=== PATIENT | female | born 1950 | race Caucasian/White ===

== ENCOUNTER 2018-12-14 05:16 | Day surgery (SDC) | payer MEDICARE, SELFPAY ==
--- NOTE | 2018-11-16 04:35 | HP_ITS ---
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 Is patient in pain?: No Allergies bacitracin Adverse Reaction (Severe, Verified 11/16/18 15:31) Itching hydrogen peroxide Adverse Reaction (Severe, Verified 11/16/18 15:31) Itching oxycodone HCl [From Percocet] Adverse Reaction (Severe, Verified 11/16/18 15:31) Itching Medications Atorvastatin Calcium [Lipitor] 20 mg PO QHS 09/13/14 [History Confirmed 11/16/18] Benazepril HCl [Lotensin] 40 mg PO DAILY 09/13/14 [History Confirmed 11/16/18] Hydrochlorothiazide [Hctz] 25 mg PO DAILY 09/13/14 [History Confirmed 11/16/18] Albuterol IH (ProAir) [Proair Hfa (SP)Vent Pts] 2 puff INHALATION Q4H PRN PRN 09/27/14 [History Confirmed 11/16/18] Potassium Chloride [K-Tab ER] 20 meq PO BID 09/27/14 [History Confirmed 11/16/18] Loperamide [Imodium] 2 mg PO 4X/DAY PRN PRN 10/02/14 [History Confirmed 11/16/18] PFSH Medical History Black tarry stools (Acute) Hemorrhoids (Acute) Diarrhea (Acute) Abdominal pain (Acute) SOB (shortness of breath) (Acute) Fatigue (Acute) DVT (deep venous thrombosis) (Acute) Hypertension (Chronic) Hyperlipidemia (Acute) COPD (chronic obstructive pulmonary disease) (Acute) Surgical History BENIGN AXILLARY MASS REMOVAL, LEFT (Acute) RECTAL SURGERY WITH BOWEL OBSTRUCTION (Acute) ANKLE/HEEL SURGERY RIGHT (Acute) Family History Father Prostate cancer Diabetes Arthritis Heart disease Mother CVA (cerebral vascular accident) Hypertension Social History (Updated 11/16/18 @ 16:35 by Allan Woody MD) Smoking Status: Current every day smoker alcohol intake: current alcohol intake frequency: holidays/special occasions only substance use type: does not use caffeine: Yes what type of physical activity do you participate in: none frequency: does not exercise HPI HPI HPI: XIN JUAREZ, is a 68 F who presents to the office today for HPI HPI Surgical H&P: Yes HPI: XIN JUAREZ, is a 68 F who presents to the office today for surgical consultation regarding a slowly elevating CEA level. The patient is referred by Dr. Evan Kurtz and a written compromise surgical consult recommendations will be returned to him. The patient is Yazmin's sister. Her most recent oncology visit demonstrated CEA level to have increased to 8.6. She was diagnosed with rectal cancer April 14 and underwent a open low anterior resection May 12, 2014 for stage III disease. Tumor invaded through the muscularis propria 5 out of 13 lymph nodes were positive. She received adjuvant chemoradiation treatment. She states that she did lose weight during that time. But is slowly put a slight bit of weight back:. She notes uncontrollable stools but that has been a constant problem. Her operation was performed by Dr. Mccormack in [facility]. The patient states that within a month postoperatively she had to go back to open surgery for small bowel obstruction. She has been a long-term cigarette smoker [id number] history and she has significant COPD. She is being referred for consideration of colonoscopy. A source for the slowly rising CEA has not as yet been determined. She reminds me that I assisted her previously with placement of right internal jugular port. That has subsequently already been removed. Her previous colonoscopy April 14 demonstrated the rectal cancer as well as 2 additional tubular adenomas of the transverse colon based upon distance ROS General General: Yes fatigue; no weight change, appetite, colon cancer, breast cancer or weakness HEENT HEENT: No difficulty swallowing, eye injury, eye surgery, swollen glands or hoarseness Endo Endocrine: No thyroid disease, diabetes mellitus, thyroid cancer, Hair loss, heat intolerance or cold intolerance Skin Skin: No rash or changing moles Musc Musculoskeletal: Yes arthritis; no back problems, rheumatoid arthritis, gout or joint pain Cardio Cardiovascular: Yes high blood pressure; no murmur, pacemaker, heart disease, atrial fibrillation, heart attack, heart stent, palpitations, shortness of breat with exertion or chest pain Psych Psychiatric: No depression, anxiety or hearing voices Resp Respiratory: Yes shortness of breath, No sleep apnea, Yes cough, Yes COPD, No asthma, No emphysema, No wheezing Gastro Gastrointestinal: Yes abdominal pain, No nausea or vomiting, Yes diarrhea, No constipation, No blood in stool, No acid reflux, Yes hemorrhoids, No ulcers, No gallbladder problem, Yes black,tarry stools Yinka Hematologic: No blood thinners, No blood disorders, No bleeding, No anemia, No blood clots Neuro Neurologic: Yes numbness, Yes tingling, No weakness Exam Const General: cooperative, comfortable, no acute distress Nutritional Appearance: underweight Orientation: alert, awake Other: Patient appears older than stated age Chest Other: Increased anterior posterior diameter Resp Other: Scattered coarse breath sounds intermittent expiratory wheeze Cardio Rate: regular rate Rhythm: regular rhythm Heart Sounds: no murmurs GI Palpation: soft, no hepatosplenomegaly Other: Well-healed infraumbilical midline incision without fascial defect Neuro Cognition: normal cognition Extrem General: no calf tenderness bilaterally Psych Affect: normal affect Assessment & Plan Problems 1. Malignant neoplasm of rectum C20 Plan I have explained to the patient that with the low anterior resection that she had the vast majority of her rectum removed therefore does not have a storage organ and therefore has fecal urgency and intermittent diarrhea as a consequence. In addition she had chemoradiation. With a slowly elevating CEA level I do recommend pursuing a colonoscopy with possible biopsy or polypectomy as indicated. She is aware of the technique, benefit, risks, alternatives. She has had an opportunity to ask and have questions answered. We will proceed as noted. Very much appreciate the ongoing opportunity of assisting with her surgical care. CC: Dr. Evan Woody M.D., F.A.C.S. Coding Level of Care Code 62698 Diagnoses Malignant neoplasm of rectum C20 11/16/18 [id number] <Electronically signed by Allan wilcox MD> Date _ Allan Woody MD I have re-examined the patient. There are no clinical changes since date of exam.
[2018-11-16 15:30] VITALS: BMI 19.5
[2018-12-14] VITALS (8 sets, daily range): BP systolic 147–168; BP diastolic 67–89; PULSE 79–93; RESP 16–18; TEMP 36–36.7; O2SAT 93–100; BMI 19.3
[2018-12-14] MEDS: Lactated Ringers 1,000 ML 100 ML IV (06:25)
--- NOTE | 2018-12-14 06:30 | COLBX_PTH ---
PATIENT: XIN JUAREZ LOC: EN U#:[id number] AGE/SX: 68/F ROOM: RE12/14/[address]: Dr. Allan Woody MD : 1950 BED: DIS: 12/14/2018 SPEC #: [id number] RECD: 12/14/18 10:50 STATUS: TERESE ELISHA #: [id number] DONALD: 12/14/18 06:[address]: Allan Woody DEPT: SURGICAL PATHOLOGY RECD BY: Ravi Gibson ENTERED: 12/14/18 11:48 SP TYPE: COLON BX OTHR DR: Lauren Patterson, PYROGLAZER-C Tissues: Rectosigmoid junction Procedures: Surgery Specimen Level IV HEADER OPERATION: Colonoscopy (MAC) PRE-OP DIAGNOSIS: Elevating CEA level TISSUE SUBMITTED: Rectosigmoid biopsy MICROSCOPIC DIAGNOSIS Rectosigmoid colon, biopsy: Melanosis coli. AM:radha 12/15/18 MICROSCOPIC DESCRIPTION Slides are reviewed. GROSS DESCRIPTION Received in fixative is one container labeled with the patient's name and designated rectosigmoid biopsy. The specimen consists of one irregular fragment of light bolden soft tissue that measures 0.5 x 0.2 x 0.1 cm. The specimen is totally submitted in one cassette. / AM:radha 12/14/18 TC:5 CPT: 75839
--- NOTE | 2018-12-14 23:36 | OP.ENDO_ITS ---
12/14/2018 Claribel Herrera Re : Colonoscopy procedure for Stefania Casarez Dear Leonardo This procedure was performed on Friday, December 14, 2018. My impressions and recommendations are as follows: Impressions : - Rectal stricture found on digital rectal exam. Marked fixation, scarring, malformation, tortuosity, inflammatory change--had to use a combination of a gastroscope and pediatric colonoscope to negotiate past the deformity. Digital exam assisted with stricture dilatation and ability to detect true lumen. - Patent end-to-end low-anterior anastomosis, characterized by congestion, edema, erythema, friable mucosa, a hemorrhagic appearance and moderate stenosis. Biopsied. - Diverticulosis in the sigmoid colon. Recommendations : - Discharge patient to home. - Resume previous diet. - Continue present medications. - Repeat colonoscopy in 3 years for surveillance. - Telephone my office for pathology results in 1 week. My findings are described in the full procedure note, which is enclosed. If I can be of further assistance, please feel free to contact me at Doctor phone number(s): Work: . Sincerely, Allan Woody MD 12/14/2018 7:16:48 AM This report has been signed electronically.
== END 2018-12-14 08:11 | disposition home or self-care (01) ==
LOC: EN 05:16 → AC 05:17
PROVIDERS: Family Provider Nurse Practitioner Family; PCP Nurse Practitioner Family; Referring Provider Nurse Practitioner Family; Visit Provider Surgery
PROC: 0DJD8ZZ Inspection of Lower Intestinal Tract, Via Natural or Artificial Opening Endoscopic (ICD-10-PCS; CPT 45378; principal; 2018-12-14 06:25)
DX: K63.89 Other specified diseases of intestine (principal); K62.4 Stenosis of anus and rectum; K57.30 Diverticulosis of large intestine without perforation or abscess without bleeding; Z85.038 Personal history of other malignant neoplasm of large intestine; J44.9 Chronic obstructive pulmonary disease, unspecified; E78.5 Hyperlipidemia, unspecified; I10 Essential (primary) hypertension; F17.210 Nicotine dependence, cigarettes, uncomplicated; Z98.0 Intestinal bypass and anastomosis status; Z86.718 Personal history of other venous thrombosis and embolism
CPT/HCPCS: 45380; 88305; J7120

== ENCOUNTER → 2018-12-28 | Outpatient (CLI) | payer MEDICARE, SELFPAY ==
[2018-11-16 15:30] VITALS: BMI 19.5
[2018-12-14 05:43] VITALS: BMI 19.3
--- NOTE | 2018-12-28 12:52 | CT_ITS ---
STUDY: CT CHEST WITH CONTRAST REASON FOR EXAM: Female, 68 years old. Abnormal PET scan and history of colon cancer. RADIATION DOSAGE (If Supplied By Facility): CTDIvol = ( 7.45 ) mGy, DLP = ( 185.08 ) mGycm TECHNIQUE: Transaxial imaging was performed following intravenous administration of IV 100mL Isovue-300 100. Individualized dose optimization techniques were used for this CT. COMPARISON: PET CT scan October 11, 2018 FINDINGS: Lungs are hyperaerated. There is centrilobular and paraseptal emphysema. There is a spiculated 13 x 9 mm groundglass density in the right upper lung field posteriorly on image #25. More ill-defined groundglass opacities noted anteriorly in the same slice. Ill-defined groundglass spiculated density right lateral upper lobe on image 39 measuring 14 x 14 mm. There is no demonstrated pleural abnormality. Normal heart and pericardium. Calcific coronary artery disease. Normal mediastinum. Normal hilar regions. Normal enhanced pulmonary arteries. Normal aorta arch and descending thoracic aorta. Normal osseous structures. Lobulated hypodense hepatic mass right lobe measures 5.2 x 4.4 cm with coarse calcifications. 14 mm calcified mass left lobe. CT/Chest WITH Contrast IMPRESSION: Stable spiculated densities right lung. Recommend continued surveillance with PET/CT. Stable hepatic lesions as above. Recommend continued surveillance with PET/CT. COPD and coronary artery disease. No acute disease. Electronically Signed: Chris Gage MD at 17:50 EDT , Service support ,
[2018-12-28 13:06] LABS: CREATININE FINGERSTICK 0.8 mg/dL (0.55-1.02); EGFR FINGERSTICK > 60.0000 mL/min (>60)
[2018-12-29 12:53] LABS: Carcinoembryonic Antigen 6.8 ng/mL (0.0-4.7)
== END | disposition home or self-care (01) ==
LOC: CT 12:51
PROVIDERS: Family Provider Nurse Practitioner Family; PCP Nurse Practitioner Family; Referring Provider Internal Medicine Hematology & Oncology; Visit Provider Internal Medicine Hematology & Oncology
DX: C20 Malignant neoplasm of rectum (principal); R89.9 Unspecified abnormal finding in specimens from other organs, systems and tissues; R93.89 Abnormal findings on diagnostic imaging of other specified body structures
CPT/HCPCS: 36415; 71260; 82378; Q9967

== ENCOUNTER → 2019-04-15 12:28 | Outpatient (CLI) | payer MEDICARE, SELFPAY ==
[2019-01-04 13:45] VITALS: BMI 19.9
[2019-04-15 13:13] LABS: Absolute Lymphocyte Count 1.04 X10^3/uL (0.83-4.51); Absolute Neutrophil Count 5.7 X10^3/uL (2.0-7.7); Basophil# 0.05 X10^3/uL; Basophil% 0.7 % (0-1); Eosinophil# 0.11 X10^3/uL; Eosinophils% 1.5 % (0-5); Hematocrit 43.1 % (37-47); Hemoglobin 13.3 g/dL (12.0-15.0); Lymphocyte # 1.04 X10^3/ul (4.0); Mean Corp Hgb Conc 30.9 g/dL (32-36); Mean Corpuscular Hgb 27.5 pg (27.0-32.0); Monocyte# 0.54 X10^3/uL; Monocyte% 7.2 % (0-10); NRBC Flagged by Analyzer 0 % (0-5); Neutrophil # 5.68 X10^3/uL (2.7-7.7); Neutrophil % 76.2 % (47-70); Platelet Count 334 K/mm3 (150-450); RBC Distribution Width CV 13.7 % (11.6-14.6); Red Blood Count 4.84 M/mm3 (4.2-5.4); White Blood Count 7.5 K/mm3 (4.4-11.0)
[2019-04-15 14:07] LABS: ALB/GLOB Ratio 1.2 RATIO (0.9-2.4); AST(SGOT) 16 U/L (15-37); Alanine Aminotransfer ALT/SGPT 22 U/L (13-56); Albumin, Serum 4.3 g/dL (3.2-5.0); Alkaline Phosphatase 118 U/L (45-117); Anion Gap 6 (5-15); BUN 11 mg/dL (7-18); BUN/Creat Ratio 15.1 RATIO (10-20); Calcium,Total 9.2 mg/dL (8.5-10.1); Chloride 105 mmol/L (98-107); Creatinine, Serum 0.73 mg/dL (0.55-1.02); EST Glomerular Filtration Rate 84 mL/min (>60); Est Glom Filt Rate - Afr Amer 102 mL/min (>60); Globulin 3.6 g/dL (2.2-4.2); Glucose 101 mg/dL (74-106); Protein, Total 7.9 g/dL (6.4-8.2); Sodium Level 139 mmol/L (136-145)
[2019-04-15 20:33] LABS: Xtra Tube EP Lab EXTRA TUBE
[2019-04-16 15:25] LABS: Carcinoembryonic Antigen 8.1 ng/mL (0.0-4.7)
== END ==
PROVIDERS: PCP Nurse Practitioner Family; Referring Provider Internal Medicine Hematology & Oncology; Visit Provider Internal Medicine Hematology & Oncology
DX: C20 Malignant neoplasm of rectum (principal)
CPT/HCPCS: 80053; 82378; 85025

== ENCOUNTER 2022-01-09 18:42 | Inpatient (IN) | payer MEDICARE, SELFPAY ==
[2022-01-09] VITALS (10 sets, daily range): BP systolic 158–203; BP diastolic 72–95; PULSE 107–118; RESP 18–26; TEMP 36.4–36.8; O2SAT 88–97; BMI 16.2; BMI 17.2
--- NOTE | 2022-01-09 19:45 | EKG12_ITS ---
Test Reason : SOB Blood Pressure : / mmHG Vent. Rate : 127 BPM Atrial Rate : 127 BPM P-R Int : 100 ms QRS Dur : 104 ms QT Int : 338 ms P-R-T Axes : 037 198 086 degrees QTc Int : 491 ms Sinus tachycardia with short [place] with frequent and consecutive Premature ventricular complexes and Fus ion complexes Right superior axis deviation Incomplete right bundle branch block Possible Right ventricular hypertrophy Nonspecific ST and T wave abnormality Abnormal ECG Confirmed by DEJAN KIMBLE, RENE ([id number]), associate editor CONSTANCE SHAHID ([id number]) on 01/13/2022 10:07:45 AM Referred By: Confirmed By:LUIS ANTONIO WYLIE MD
--- NOTE | 2022-01-09 19:46 | EDS_ITS ---
HPI History of Present Illness Chief Complaint: Shortness of Breath Narrative Narrative: 71-year-old female presenting with confusion and agitation. Apparently she was hospitalized at [facility] over the course of the last week. Initially she went to [facility] and was diagnosed with COVID and had a CTA of the chest which showed long masses. She spent time at [facility]. Her states that he was called to pick her up yesterday. He states he was not handed any paperwork. He states nobody told him anything about anything. He states he was discharged home on oxygen 4 L nasal cannula. Over the course the last 24 hours she has been agitated and confused. She is not had any fever. She not coughing. states he knows she has hypertension and COPD but does not know much history. He does not know if she started any new medications that would be causing agitation. He does state that he recalls that they were not able to do long biopsies for her lung cancer because she has COVID. states that she has been on the 4 L nasal cannula but is agitated and pulling it off and is having trouble keeping it on her. He states he does not have a pulse oximeter and has not been told to check his 's pulse ox. [facility] Medical History (Updated 01/09/22 @ 22:[address] Griselda Youssef MD) Abdominal pain Black tarry stools COPD (chronic obstructive pulmonary disease) Diarrhea DVT (deep venous thrombosis) Fatigue Hemorrhoids Hyperlipidemia Hypertension SOB (shortness of breath) Home Medications atorvastatin 20 mg tablet 20 mg PO QHS 09/13/14 [History Last Taken Unknown] benazepril 40 mg tablet 40 mg PO DAILY 09/13/14 [History Last Taken 09/14/14 08:00] hydrochlorothiazide 25 mg tablet 25 mg PO DAILY 09/13/14 [History Last Taken Unknown] albuterol sulfate 90 mcg/actuation aerosol inhaler 2 puff inhalation Q4H PRN PRN Shortness Of Breath 09/27/14 [History Last Taken Unknown] potassium chloride 20 mEq tablet,extended release 20 meq PO BID 09/27/14 [History Last Taken Unknown] loperamide 2 mg capsule 2 mg PO 4X/DAY PRN PRN Diarrhea 10/02/14 [History Last Taken Unknown] Allergy/AdvReac Type Severity Reaction Status Date / Time bacitracin AdvReac Severe Itching Verified 10/13/22 18:44 hydrogen peroxide AdvReac Severe Itching Verified 01/09/22 18:44 oxycodone HCl [From Percocet] AdvReac Severe Itching Verified 01/09/22 18:44 Family History Father Prostate cancer Diabetes Arthritis Heart disease Mother CVA (cerebral vascular accident) Hypertension Surgical History (Updated 01/09/22 @ 22:[address] Griselda Youssef MD) ANKLE/HEEL SURGERY RIGHT BENIGN AXILLARY MASS REMOVAL, LEFT History of colectomy RECTAL SURGERY WITH BOWEL OBSTRUCTION Social History (Updated 01/09/22 @ 22:[address] Griselda Youssef MD) household members: spouse Smoking Status: Unknown if ever smoked how long ago did patient quit smoking: Quit 05/21/2014 tobacco use. alcohol intake: current alcohol intake frequency: holidays/special occasions only substance use type: does not use caffeine: Yes what type of physical activity do you participate in: none frequency: does not exercise ROS ROS ED Review of Systems ROS Unobtainable: due to mental status EXAM Physical Exam Const Vital Signs: 01/09/22 18:44 01/09/22 18:47 01/09/22 20:23 Temperature 97.5 F L 97.5 F L Temperature Source Temporal Temporal Pulse Rate 111 H 111 H Respiratory Rate 18 18 Respiratory Effort Short of Breath Respiratory Depth Normal Respiratory Pattern Normal Blood Pressure 161/94 H 161/94 H Blood Pressure Mean 116 116 Pulse Ox 89 92 Oxygen Delivery Method Nasal Cannula Nasal Cannula High Flow Oxygen Flow Rate (L/min) 4 5 10 01/09/22 20:47 01/09/22 21:34 01/09/22 21:39 Temperature Temperature Source Pulse Rate 116 H Respiratory Rate 26 H Respiratory Effort Respiratory Depth Respiratory Pattern Blood Pressure 183/86 H Blood Pressure Mean 118 Pulse Ox 88 91 Oxygen Delivery Method High Flow Nasal Cannula Nasal Cannula Oxygen Flow Rate (L/min) 5 6 10 Positive unkempt General Appearance ED: unkempt; Negative for pallor HEENT Reports dry mucous membranes atraumatic Mouth ED: Yes dry mucous membranes Mouth: dry mucous membranes Eyes PERRL and EOMs intact bilaterally General Eye ED: Negative for pale conjunctiva or scleral icterus Neuro Neuro Narrative: Awake and confused. Agitated trying to get out of bed. Sensorium / Orientation: alert Motor Exam: strength 5/5 throughout Psych Psych Narrative: Confused Appearance: unkempt Attitude: agitated Skin no wounds General Skin Exam: Negative for jaundice or pallor MDM MDM MDM Narrative Medical decision making narrative: Review of the medical record on Fernando shows that she was seen 01/03/2022 at [facility] where she had a work-up started. She had a CTA of the chest which showed a right hilar mass with encasement of the right upper lobe pulmonary artery. There was also a spiculated right upper lobe and left lower lobe masses present. Apparently there was concern for possible adrenal mass. Patient was transferred by EMS to [facility]. Apparently she was treated for acute hypoxic respiratory failure, COVID-19, COPD exacerbation. Patient was able to be weaned down to 2 L of oxygen in the hospital. She did have a CT of the abdomen pelvis while she was in the hospital which showed a 2 cm left adrenal lesion with no other acute findings. Per oncology at [facility] she was upset that she was not able to get the biopsy in the hospital and was requesting to have follow-up at someplace in [place]. Apparently she had a pulmonology consult as well and they were concerned about malignancy. Was concerned this could be a stage III or IV cancer. They recommended IR guided biopsy of the right-sided lung nodules. They also stated that she would need further work-up for her adrenal mass. Patient was on Solu-Medrol 60 mg every 8 hours, received breathing treatments and Combivent scheduled every 6 hours. Ap parently the protocol was to wean to maintain FiO2 more than 88%. She did agree and did receive a whole treatment of remdesivir. Apparently from social work notes the patient was not needing any help at home. She had normal ADLs prior to admission. The plan was to discharge her home. Although all of the notes from [facility] states that she was supposed to be on 2 L of nasal cannula the reports that she has been on 4 L since he picked her up. Blood work today shows a white blood cell count of 30.3. Hemoglobin stable at 13.7, hematocrit 38.8, platelets 498. CMP shows that her sodium is 114 which is acute. She had normal lab work yesterday. Her potassium was 2.7. Chloride 68. CO2 is 34. Ammonia level is normal at 31. VBG does not show any significant hypercapnia. Slightly alkalotic. High-sensitivity troponin is 51. EKG is limited by artifact but on my interpretation this is a sinus rhythm with a ventricular rate of approximately 120 to 30 bpm without sign of ischemic change. Chest x-ray on my interpretation does not show any acute pathology. Radiologist interprets this and agrees but does state there is a nodular density in the right upper lobe. This is already known to the patient as she had a CT recently and is already had an oncology consult and pulmonary consult. Given the acute hyponatremia I have discussed the patient with the hospitalist. Wants to treat this with hypertonic saline. She replete potassium. She wants to repeat BMPs. She recommend admitting patient to the ICU. I discussed all findings with the patient's family and they are amenable to this. Patient admitted in stabilized condition. Impression: 1. Delirium 2. Hyponatremia 3 hypokalemia 4. Hypochloremia 5. Leukocytosis Lab Data Attestation: I reviewed the patient's lab results. Labs: Laboratory Results - last 24 hr 01/09/22 01/09/22 01/09/22 20:13 20:13 20:13 WBC 30.3 H* RBC 4.76 Hgb 13.7 Hct 38.8 MCV 81.5 MCH 28.8 MCHC 35.3 RDW Std Deviation 37.1 RDW Coeff of Cody 12.4 Plt Count 498 H MPV 9.9 Immature Gran % (Auto) 2.100 H Neut % (Auto) 88.5 H Lymph % (Auto) 1.3 L O'Brien % (Auto) 7.4 Eos % (Auto) 0.4 Baso % (Auto) 0.3 Absolute Neuts (auto) 26.8 H Absolute Lymphs (auto) 0.38 L Nucleated RBC % 0.1 Differential Comment SCANNED Diff Path Review May foll Sodium 114 L* Potassium 2.7 L* Chloride 68 L* Carbon Dioxide 34.0 H Anion Gap 12 BUN 11 Creatinine 0.49 L Estim Creat Clear Calc 35.10 Est GFR (MDRD) Af Amer 159 Est GFR (MDRD) Non-Af 132 BUN/Creatinine Ratio 22.4 H Glucose 117 H Calcium 8.1 L Total Bilirubin 1.30 H Direct Bilirubin 0.19 AST 33 ALT 31 Alkaline Phosphatase 96 Ammonia 31.0 Troponin I High Sens 51 Total Protein 6.7 Albumin 3.6 Globulin 3.1 ABG Data ABG results: ABG 01/09/22 20:14 Specimen Type JENNIFER VBG pH 7.51 H VBG pO2 46 H VBG HCO3 34 H VBG Total CO2 36 H VBG O2 Sat (Calc) 85 H VBG Base Excess 11 H POC Mix VBG pCO2 Pt Tmp 42.5 O2 Delivery Device Cannula Liter Flow 6.0 Radiography Diagnostic Testing: Clinical Impression(s) from Imaging Studies Chest X-Ray 01/09/22 19:58 IMPRESSION: Pulmonary hyperinflation with vague nodular opacity in the right upper lobe overlying the right sixth rib posteriorly further evaluation with CT scan of the chest may be beneficial. There is no acute pulmonary abnormality. Electronically Signed: Tayo Grbubs MD at 20:34 EDT , Discharge Plan Triage Chief Complaint: Shortness of Breath ED Provider: Chip Oviedo Dx/Rx/DC Orders Primary Care Provider: Lauren Patterson NP Disposition Disposition: Home, Self Care
--- NOTE | 2022-01-09 19:58 | RAD_ITS ---
EXAM: XR CHEST, 1 VIEW CLINICAL INDICATION: chest pain TECHNIQUE: Frontal view of the chest. This report was created using [employer] report generation technology. COMPARISON: 09/14/2014 FINDINGS: LUNGS AND PLEURAL SPACES: Lungs are mildly hyperinflated. There is vague nodular opacity in the right upper lobe. There is no effusion or pneumothorax. HEART: Unremarkable. Cardiac silhouette not enlarged. MEDIASTINUM: Central airways and mediastinal contour are unremarkable. BONES/JOINTS: Unremarkable. SOFT TISSUES: Unremarkable. RAD/Chest 1 View (Portable) IMPRESSION: Pulmonary hyperinflation with vague nodular opacity in the right upper lobe overlying the right sixth rib posteriorly further evaluation with CT scan of the chest may be beneficial. There is no acute pulmonary abnormality. Electronically Signed: Tayo Grubbs MD at 20:34 EDT ,
[2022-01-09 20:21] LABS: Blood Gas Specimen Type VEN; O2 Delivery Device Cannula; VBG BASE EXCESS 11 mmol/L (-1.0-3.5); VBG Bicarbonate 34 mmol/L (22-26); VBG PO2 46 mmHg (25-40); VBG SO2 85 % (50-70); VBG TCO2 36 mmol/L (23-33); VBG pCO2 42.5 mmHg (41-51); VBG pH 7.51 (7.32-7.42)
[2022-01-09] MEDS: LORazepam 2 MG/ML Syringe 0.5 MG IV (20:22)
[2022-01-09 20:30] LABS: Absolute Lymphocyte Count 0.38 X10^3/uL (0.83-4.51); Absolute Neutrophil Count 26.8 X10^3/uL (2.0-7.7); Basophil% 0.3 % (0-1); Eosinophil# 0.12 X10^3/uL; Eosinophils% 0.4 % (0-5); Hematocrit 38.8 % (37-47); Hemoglobin 13.7 g/dL (12.0-15.0); Lymphocyte # 0.38 X10^3/ul (0.83-4.51); Lymphocyte % 1.3 % (19-41); Mean Corp Hgb Conc 35.3 g/dL (32-36); Mean Corpuscular Hgb 28.8 pg (27.0-32.0); Mean Corpuscular Volume 81.5 fL (81-99); Mean Platelet Vol. 9.9 fl (6.2-12.0); Monocyte# 2.23 X10^3/uL; Monocyte% 7.4 % (0-10); NRBC Flagged by Analyzer 0.1 % (0-5); Neutrophil % 88.5 % (47-70); POSITIVE COUNT YES; POSITIVE DIFFERENTIAL YES; POSITIVE MORPHOLOGY YES; Platelet Count 498 K/mm3 (150-450); RBC Distribution Width CV 12.4 % (11.6-14.6); RBC Distribution Width SD 37.1 fl (35.1-43.9); Red Blood Count 4.76 M/mm3 (4.2-5.4)
[2022-01-09 20:47] LABS: Differential Indicated SCAN CRITERIA MET; White Blood Count 30.3 K/mm3 (4.4-11.0)
[2022-01-09 21:19] LABS: AST(SGOT) 33 U/L (15-37); Alanine Aminotransfer ALT/SGPT 31 U/L (13-56); Albumin, Serum 3.6 g/dL (3.2-5.0); Alkaline Phosphatase 96 U/L (45-117); Anion Gap 12 (5-15); BUN 11 mg/dL (7-18); BUN/Creat Ratio 22.4 RATIO (10-20); Bilirubin, Direct 0.19 mg/dL (0.00-0.30); Calcium,Total 8.1 mg/dL (8.5-10.1); Chloride 68 mmol/L (98-107); Creatinine, Serum 0.49 mg/dL (0.55-1.02); EST Glomerular Filtration Rate 132 mL/min (>60); Est Glom Filt Rate - Afr Amer 159 mL/min (>60); Globulin 3.1 g/dL (2.2-4.2); Glucose 117 mg/dL (74-106); Potassium 2.7 mmol/L (3.5-5.1); Protein, Total 6.7 g/dL (6.4-8.2); Sodium Level 114 mmol/L (136-145); Troponin-I HS (w/2H Reflex) 51 pg/mL (3.0-54.0)
[2022-01-09 21:33] LABS: Differential Comment SCANNED
[2022-01-09] MEDS: 0.9% Normal Saline 1,000 ML 999 ML IV (21:44)
--- NOTE | 2022-01-09 22:03 | HP.PCM.HOS_ITS ---
HPI - General General Date of Admission: 01/09/22 Date of Service: 01/09/22 Chief Complaint: Encephalopathy, agitation. HPI Narrative The patient is a 71 y/o F w/ PMHx: Hx VTE, Hx GI bleed, COPD with chronic hypoxic respiratory failure (2L NC baseline previously at home), Hx Tobacco use, HTN, HLD, Hx, History of rectal CA s/p surgical resection 04/2014, History of COVID vaccination but no booster treatments, recent discharged from [facility] 01/08/22 secondary to 1 week of worsening respiratory symptoms including cough, dyspnea as well as episodes of hemoptysis supposedly treated for [employer] pneumonia with Z-Jose without without improvement outpatient with outpatient directed CT chest which at that time demonstrated lung mass prompting transfer to [place] for pulmonology evaluation with incidentally positive COVID- 19 testing with noted hypoxia in addition to a COPD exacerbation treated with Solu-Medrol and a therapeutic course of remdesivir with deferral of IR guided biopsy until recovery from COVID as well as noted loose stools at that time with negative C. difficile testing with patient preference to follow-up with pulmonary medicine at [facility] discharged on continued 5-day course of prednisone therapy, Mucinex and oxygen supplementation with increased from home prior baseline 2 L nasal cannula to at least 4 L nasal cannula. Patient now presents to the [facility] ED on 01/09/22 with history of since discharge increased confusion and agitation per spouse prompting ED evaluation. Work-up in the ED included T97.5, heart rate 111, BP 161/94, respiratory rate 18, initially noted to be 89% on 4 L nasal cannula eventually requiring transition to high flow at 10 L, VBG with pH 7.51, PO2 46, bicarb 34, total CO2 36, oxygenation 85%, obtained on 6 L nasal cannula, chest x-ray with pulmonary hyper inflation with vague nodular opacity right upper lobe overlying the right sixth rib posteriorly, CBC with WBC 30.3, hemoglobin 13.7, platelet 498 with left shift and lymphopenia, CMP with significant abnormalities with noted sodium 114, potassium 2.7, chloride 68, carbon oxide 34, BUN/creatinine 11/0.49, glucose 117, calcium 8.1, total bilirubin 1.30 otherwise hepatic profile not marked appearing, ammonia 31, troponin 51. In the ED patient administered 1L NS and ativan 0.5 mg IV x 1 until labs noted. Given encephalopathy, confusion/agitation, opted to start hypertonic saline and admit to the ICU. [facility] Medical History (Updated 01/10/22 @ 01:[address] Griselda Youssef MD) COPD (chronic obstructive pulmonary disease) Diarrhea DVT (deep venous thrombosis) Hemorrhoids Hyperlipidemia Hypertension Malignant neoplasm of rectum Home Medications atorvastatin 20 mg tablet 20 mg PO QHS 09/13/14 [History Last Taken Unknown] benazepril 40 mg tablet 40 mg PO DAILY 09/13/14 [History Last Taken 09/14/14 08:00] hydrochlorothiazide 25 mg tablet 25 mg PO DAILY 09/13/14 [History Last Taken Unknown] albuterol sulfate 90 mcg/actuation aerosol inhaler 2 puff inhalation Q4H PRN PRN Shortness Of Breath 09/27/14 [History Last Taken Unknown] potassium chloride 20 mEq tablet,extended release 20 meq PO BID 09/27/14 [History Last Taken Unknown] loperamide 2 mg capsule 2 mg PO 4X/DAY PRN PRN Diarrhea 10/02/14 [History Last Taken Unknown] Allergy/AdvReac Type Severity Reaction Status Date / Time bacitracin AdvReac Severe Itching Verified 01/09/22 18:44 hydrogen peroxide AdvReac Severe Itching Verified 01/09/22 18:44 oxycodone HCl [From Percocet] AdvReac Severe Itching Verified 01/09/22 18:44 Family History Father Prostate cancer Diabetes Arthritis Heart disease Mother CVA (cerebral vascular accident) Hypertension Surgical History (Updated 01/09/22 @ 22:[address] Griselda Youssef MD) ANKLE/HEEL SURGERY RIGHT BENIGN AXILLARY MASS REMOVAL, LEFT History of colectomy RECTAL SURGERY WITH BOWEL OBSTRUCTION Social History (Updated 01/10/22 @ 01:[address] Griselda Youssef MD) household members: spouse Smoking Status: Former smoker how long ago did patient quit smoking: Quit 05/21/2014 tobacco use. alcohol intake: current alcohol intake frequency: holidays/special occasions only substance use type: does not use caffeine: Yes what type of physical activity do you participate in: none frequency: does not exercise ROS Review of Systems ROS Unobtainable: due to encephalopathy Vital Signs Vital Signs Vital Signs: 01/09/22 18:44 01/09/22 18:47 01/09/22 20:23 Temperature 97.5 F L 97.5 F L Temperature Source Temporal Temporal Pulse Rate 111 H 111 H Respiratory Rate 18 18 Respiratory Effort Short of Breath Respiratory Depth Normal Respiratory Pattern Normal Blood Pressure 161/94 H 161/94 H Blood Pressure Mean 116 116 Pulse Ox 89 92 Oxygen Delivery Method Nasal Cannula Nasal Cannula High Flow Oxygen Flow Rate (L/min) 4 5 10 01/09/22 20:47 01/09/22 21:34 01/09/22 21:39 Temperature Temperature Source Pulse Rate 116 H Respiratory Rate 26 H Respiratory Effort Respiratory Depth Respiratory Pattern Blood Pressure 183/86 H Blood Pressure Mean 118 Pulse Ox 88 91 Oxygen Delivery Method High Flow Nasal Cannula Nasal Cannula Oxygen Flow Rate (L/min) 5 6 10 Weight Weight: 95 lb Body Mass Index (BMI) 16.2 Physical Exam Narrative Physical Examination: General: Awake, alert but not oriented, unable to answer any questions, agitated, not following commands, in the ED bed. Skin: Normal color, normal turgor, no icterus, no cyanosis except very staged ecchymoses to the extremities. HEENT: AT/NC, EOMI, PERRLA, dry MM, no carotid bruits or JVD noted. Lungs: Significantly diminished, greater bases, right greater than left, increased respiratory rate but primarily secondary to agitation, pulling off her oxygen, mildly rhonchorous, no wheezing. Heart: Tachycardic with regular rhythm; no gallop, rub audible. Abdomen: Soft, thin habitus, NTTP, ND, distant normal BS, no HSM. Extremities: No cyanosis, clubbing, or edema. Neurological: Patient awake, alert, not oriented, cognitive function not bas taj intact; pupils equally reactive to light and accommodation, cranial nerves grossly normal but difficult evaluation given encephalopathy and agitation, moving all 4 extremities, unable to elicit any specific focal deficits, strength also difficult to assess given agitation but appears at least moderately globally decreased. Psychiatric: Affect appears agitated, no acute evidence of depressive or anxiety feelings. Results Lab / Micro Data Result Diagrams: 01/09/22 20:13 01/09/22 22:40 Labs: Laboratory Results - last 24 hr 01/09/22 20:13: WBC 30.3 H*, RBC 4.76, Hgb 13.7, Hct 38.8, MCV 81.5, MCH 28.8, MCHC 35.3, RDW Std Deviation 37.1, RDW Coeff of Cody 12.4, Plt Count 498 H, MPV 9.9, Immature Gran % (Auto) 2.100 H, Neut % (Auto) 88.5 H, Lymph % (Auto) 1.3 L, Stoddard % (Auto) 7.4, Eos % (Auto) 0.4, Baso % (Auto) 0.3, Absolute Neuts (auto) 26.8 H, Absolute Lymphs (auto) 0.38 L, Nucleated RBC % 0.1, Differential Comment SCANNED, Diff Path Review July01/09/22 20:13: Sodium 114 L*, Potassium 2.7 L*, Chloride 68 L*, Carbon Dioxide 34.0 H, Anion Gap 12, BUN 11, Creatinine 0.49 L, Estim Creat Clear Calc 35.10, Est GFR (MDRD) Af Amer 159, Est GFR (MDRD) Non-Af 132, BUN/Creatinine Ratio 22.4 H, Glucose 117 H, Calcium 8.1 L, Total Bilirubin 1.30 H, Direct Bilirubin 0.19, AST 33, ALT 31, Alkaline Phosphatase 96, Troponin I High Sens 51, Total Protein 6.7, Albumin 3.6, Globulin 3.1 01/09/22 20:13: Ammonia 31.0 ABG Data ABG results: ABG 01/09/22 20:14 Specimen Type JENNIFER VBG pH 7.51 H VBG pO2 46 H VBG HCO3 34 H VBG Total CO2 36 H VBG O2 Sat (Calc) 85 H VBG Base Excess 11 H POC Mix VBG pCO2 Pt Tmp 42.5 O2 Delivery Device Cannula Liter Flow 6.0 Radiology Impression Chest X-Ray 01/09/22 19:58 IMPRESSION: Pulmonary hyperinflation with vague nodular opacity in the right upper lobe overlying the right sixth rib posteriorly further evaluation with CT scan of the chest may be beneficial. There is no acute pulmonary abnormality. Electronically Signed: Tayo Grubbs MD at 20:34 EDT , Assessment & Plan Assessment/Plan (1) Encephalopathy acute: PLAN: Plan The patient is a 71 y/o F w/ PMHx: Hx VTE, Hx GI bleed, COPD with chronic hypoxic respiratory failure (2L NC baseline previously at home), Hx Tobacco use, HTN, HLD, Hx, History of rectal CA s/p surgical resection 04/2014, History of COVID vaccination but no booster treatments, recent discharged from [facility] 01/08/22 secondary to 1 week of worsening respiratory symptoms including cough, dyspnea as well as episodes of hemoptysis supposedly treated for [employer] pneumonia with Z-Jose without without improvement outpatient with outpatient directed CT chest which at that time demonstrated lung mass prompting transfer to [place] for pulmonology evaluation with incidentally positive COVID- 19 testing with noted hypoxia in addition to a COPD exacerbation treated with Solu-Medrol and a therapeutic course of remdesivir with deferral of IR guided biopsy until recovery from COVID as well as noted loose stools at that time with negative C. difficile testing with patient preference to follow-up with pulmonary medicine at [facility] discharged on continued 5-day course of prednisone therapy, Mucinex and oxygen supplementation with increased from home prior baseline 2 L nasal cannula to at least 4 L nasal cannula who presents to the [facility] ED on 01/09/22 with history of since discharge increased confusion and agitation per spouse prompting ED evaluation. #1. Acute encephalopathy, Suspected Multifactorial, Acute on Chronic Hypoxic and Hypercarbic Respiratory Failure secondary to pulling her oxygen off as well as significant electrolyte disturbances with acute hyponatremia, hypokalemia, hypochloremia, unclear specific etiology: Admission presentation with notable increased oxygen requirements transition to 10 L high flow noted to be 91% with recent discharge 2 to 4 L secondary to severe agitation and not keeping her oxy gen in place, CMP with significant electrolyte disturbances with sodium 114, potassium 2.7, chloride 68 with recent 01/08/2022 BMP at [place] facility prior to discharge with sodium 132, potassium 4.1, chloride 90, CO2 36, BUN/creatinine 18/0.57, glucose 110, calcium 8.7. 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 #2. Recent Acute on chronic COPD exacerbation and Acute COVID Viral Syndrome with associated Acute Hypoxia on Chronic Hypoxic Respiratory Failure: Will maintain on oxygen with wean as tolerated to prior home level, had recently required increased usage up to 4L but prior at home had been on 2L NC per [facility] records with suspicion that worsened initial respiratory status upon ED presentation primarily secondary to agitation and not keeping her oxygen on. Will continue ATC duonebs, PRN albuterol, given concern for worsened respiratory status will transition back to IV Solu-Medrol. #3. Recent Incidentally Diagnosed Pulmonary Mass: CT Chest at [facility] w/ noted diffuse emphysema, left lower lobe bulla, 3 spiculated masses in the right upper lobe measuring 18 x 18 mm, 12 x 19 mm and 13 x 14 mm, 3.1 x 4.9 x 3.5 cm right hilar mass encasing the right upper lobe branch of the pulmonary artery, 3 mm nodule in the right lower lobe, 0.5 cm nodule left lower lobe, 2 cm left adrenal mass. Patient evaluated by pulmonary medicine at [facility] facility following transfer with CT abdomen obtained was again noted to centimeter left adrenal lesion, nonspecific increased gas and fluid with air-fluid levels and multiple small bowel loops possibly enteritis, slight wall thickening and air- fluid levels in the stomach possibly gastritis with no bowel obstruction, evidence of mild constipation. Pulmonary medicine consultation from [facility] noted lung mass highly concerning for at least stage III or stage IV cancer with recommended IR biopsy of at least one of the right-sided lung nodules. Also recommended follow-up of incidental adrenal mass. Pulmonary consulted as noted. #4. Hypertension: Given agitation will hold home oral regimen, PRN hydralazine. #5. Hyperlipidemia: Given agitation will hold home oral atorvastatin therapy. #6. Former tobacco use: Encourage continued tobacco cessation. #7. History of rectal cancer: Status post remote rectal cancer resection with partial colectomy, had been considered in remission. #8. Hx VTE: We will maintain on chemoprophylaxis as noted especially given recent COVID diagnosis. #9. History of prior GI bleed: Cautiously using chemoprophylaxis as noted. #10. DVT prophylaxis: SCDs, Lovenox. #11. CODE status: Patient notes that patient's sister is technically her healthcare power of patent attorney with living will in place. Discussed CODE status at length including difference between FULL code, DNR-CCA and DNR-CC status. Following discussions about the differences in these status, requested Full Code status. Advanced Care Planning Face to Face Time: 16 minutes. Charges/Coding Visit Charges Inpatient E&M: 01193 Init Hosp L3 Procedures Hospitalists Procedures: 42197 Advncd Care Plan 30 Min
[2022-01-09 22:24] LABS: Reflex Troponin-HS? (from REC) Y
[2022-01-09] MEDS: Sodium Cl 3% 500 ML 50 ML IV (22:43)
[2022-01-09 22:56] LABS: Mucous, Urine 0 SEEN /hpf (<or=2+); Squamous Epithelial Cells - UA 0 SEEN /hpf (5-10); White Blood Cells 0 SEEN /hpf (0-5)
[2022-01-09 23:08] LABS: Color, Urine Straw (Yellow); Glucose, Dipstick 50 mg/dl (Normal); Ketone-Dipstick 50 mg/dl (Negative); Leukocyte Esterase-Dipstick Negative /ul (Negative); Nitrite-Dipstick Negative (Negative); Occult Blood-Urine 25 /ul (Negative); Protein-Dipstick 30 mg/dl (Negative); Urine Bilirubin Dipstick Negative (Negative); Urine Clarity Clear (Clear); Urine Urobilinogen Normal (Normal)
[2022-01-09 23:24] LABS: Anion Gap 12 (5-15); BUN 11 mg/dL (7-18); BUN/Creat Ratio 24.8 RATIO (10-20); Calcium,Total 7.9 mg/dL (8.5-10.1); Chloride 70 mmol/L (98-107); Creatinine, Serum 0.44 mg/dL (0.55-1.02); EST Glomerular Filtration Rate 148 mL/min (>60); Est Glom Filt Rate - Afr Amer 179 mL/min (>60); Glucose 90 mg/dL (74-106); Potassium 2.8 mmol/L (3.5-5.1); Sodium Level 115 mmol/L (136-145); Troponin-I HS 78 pg/mL (3.0-54.0)
[2022-01-09 23:46] LABS: Bacteria RARE /hpf (None Seen); Red Blood Cells-Urine 0-5 SEEN /hpf (0-5)
[2022-01-09] MEDS: 0.9% Saline Lock 10 ML Syringe IV (23:55)
[2022-01-09] MEDS: Haloperidol Lactate 5 MG/ML Vial 1 MG IV (23:55)
[2022-01-10] VITALS (47 sets, daily range): BP systolic 78–189; BP diastolic 42–150; PULSE 68–121; RESP 12–24; TEMP 36.6–37.7; O2SAT 75–100
[2022-01-10] MEDS: Sodium Cl 3% 500 ML 50 ML IV ×2 (00:09→08:41)
--- NOTE | 2022-01-10 00:22 | CPS ---
Haldol was given due to pt.'s agitation at this time. Pt.'s HFNC titrated up to 10L at this time.
[2022-01-10] MEDS: Potassium Chloride 10mEq/100mL 10 MEQ/100 ML IV.SOLN. 100 MEQ IV BOLUS ×7 (00:40→12:47)
[2022-01-10 00:43] LABS: Urine Sodium 56 mmol/L (Not Establ.)
[2022-01-10 00:44] LABS: Osmolality, Urine 407 mOsm/KG
[2022-01-10 01:45] LABS: Thyroid Stim Hormone (TSH) 0.96 uIU/mL (0.358-3.74)
[2022-01-10 01:46] LABS: Procalcitonin 0.09 ng/mL (0.00-0.09)
[2022-01-10 01:49] LABS: Anion Gap 12 (5-15); BUN 11 mg/dL (7-18); BUN/Creat Ratio 29.9 RATIO (10-20); Calcium,Total 7.7 mg/dL (8.5-10.1); Chloride 75 mmol/L (98-107); Creatinine, Serum 0.37 mg/dL (0.55-1.02); EST Glomerular Filtration Rate 184 mL/min (>60); Est Glom Filt Rate - Afr Amer 222 mL/min (>60); Estimated Creatinine Clearance 38.35 ml/min; Glucose 92 mg/dL (74-106); Magnesium 1.7 mg/dL (1.6-2.6); Potassium 2.8 mmol/L (3.5-5.1); Sodium Level 116 mmol/L (136-145)
[2022-01-10] MEDS: Haloperidol Lactate 5 MG/ML Vial 1 MG IV (02:13)
[2022-01-10] MEDS: 0.9% Saline Lock 10 ML Syringe IV ×2 (02:14→21:19)
[2022-01-10 03:15] LABS: Allen Test Positive; Base Excess 6 mmol/L (-2 to +2); Bicarbonate 31.6 mmol/L (22-26); Blood Gas Specimen Type ART; FI02 100; O2 Delivery Device BiPAP; PO2 90 mmHG (75-100); SITE L Brach; SO2 96 % (95-99); Total Carbon Dioxide 33 mmol/L; pCO2 56.4 mmHg (35-45); pH 7.36 (7.35-7.45)
[2022-01-10] MEDS: Metoprolol Tartrate 5 MG/5 ML Vial IV (03:40)
--- NOTE | 2022-01-10 03:50 | PCM.HOSP.N ---
Hospitalist Note Patient with intermittent periods of increased agitation, pulling off her oxygen and increased RR associated as a result. Eventually necessitated transition to BIPAP. Patient re-evaluated in the ICU given concerns for possible intubation needs. Currently more calm, sitter in place, oxygenation appropriate on her current BIPAP settings, ABG obtained w/ pH 7.36, PCO2 56.4, PO2 90. Discussed current status with RT and ICU staff. Will also increase her hypertonic saline to 60 cc/hr.
--- NOTE | 2022-01-10 04:21 | RAD_ITS ---
STUDY: X-RAY CHEST REASON FOR EXAM: Female, 71 years old. Dyspnea TECHNIQUE: Single AP portable view of the chest. COMPARISON: None. FINDINGS: There is hyperinflation of the lungs consistent with chronic obstructive lung disease (COPD). There is no demonstrated pleural abnormality. Normal size heart. Normal mediastinum and emile. Normal visualized pulmonary arteries. Normal visualized aortic arch and descending thoracic aorta. Normal visualized thoracic spine. Normal visualized ribs, clavicles, and shoulders. There is no demonstrated abnormality of the visualized soft tissue structures of the upper abdomen. RAD/Chest 1 View (Portable) IMPRESSION: There is hyperinflation of the lungs consistent with chronic obstructive lung disease (COPD). Electronically Signed: Yin Zhang MD at 4:50 EDT ,
--- NOTE | 2022-01-10 04:42 | PCM.HOSP.N ---
Hospitalist Note Discussed current status with Dr. Mckeon given patient ongoing complicated presentation. Given notable CT chest findings with heavy metastatic tumor burden loathe to intubate if able to avoid thus per discussion with Dr. Mckeon will start precedex. Reviewed records from [facility] and [place] with Dr. Mckeon and from further review no CT head to ascertain if any metastatic brain lesions has yet to be performed. If able to be calm with precedex will also plan to obtain CT head. If lesions present, prognosis would be notably poor. Dr. Mckeon notes intention to again discuss prognosis and goals of care with patient family early this AM.
[2022-01-10] MEDS: 0.9% Normal Saline 1,000 ML 999 ML IV (06:30)
[2022-01-10] MEDS: Ipratropium/Albuterol Sulfate 3 ML AMPUL.NEB INHALATION ×3 (06:51→19:06)
[2022-01-10 08:33] LABS: Anion Gap 9 (5-15); BUN 12 mg/dL (7-18); BUN/Creat Ratio 27.2 RATIO (10-20); Calcium,Total 6.7 mg/dL (8.5-10.1); Chloride 86 mmol/L (98-107); Creatinine, Serum 0.44 mg/dL (0.55-1.02); EST Glomerular Filtration Rate 149 mL/min (>60); Est Glom Filt Rate - Afr Amer 180 mL/min (>60); Estimated Creatinine Clearance 38.37 ml/min; Glucose 102 mg/dL (74-106); Potassium 3.2 mmol/L (3.5-5.1); Sodium Level 122 mmol/L (136-145)
[2022-01-10] MEDS: Enoxaparin 40 MG/0.4 ML Syringe SC (09:20)
[2022-01-10] MEDS: Menthol/Lanolin/Calamine/Znox 113 GM Tube 1 APPLIC TOPICAL ×4 (09:20→21:19)
--- NOTE | 2022-01-10 09:36 | CT_ITS ---
STUDY: CT BRAIN WITH AND WITHOUT CONTRAST REASON FOR EXAM: Female, 71 years old. Concern for brain mets RADIATION DOSAGE (If Supplied By Facility): CTDIvol = ( 44.99 ) mGy, DLP = ( 1715.95 ) mGycm TECHNIQUE: Transaxial CT imaging of the brain was performed pre and post contrast administration. The examination was performed with intravenous administration of IV 50mL [id number]-[id number]. Individualized dose optimization techniques were used for this CT. COMPARISON: None. FINDINGS: Normal soft tissue structures. Normal calvarium. There is mild cerebral atrophy with widening of the extra-axial spaces and ventricular dilatation. There are areas of decreased attenuation within the white matter tracts of the supratentorial brain, consistent with microvascular disease changes. Findings suggestive of a tiny lacunar infarct in the insular cortex of the left temporal lobe. This most likely is old. Normal brainstem. Normal cerebellum. There is no intracranial hemorrhage. There are no findings of an acute ischemic infarction. Normal visualized paranasal sinuses. CT/Brain/Head W/WO Contrast IMPRESSION: Chronic involutional changes of the brain. Electronically Signed: Marc Watts MD at 11:06 EDT ,
--- NOTE | 2022-01-10 09:42 | CON.PCM.CC_ITS ---
Assessment & Plan Assessment/Plan (1) Acute respiratory failure with hypoxia: (2) Suspected malignant neoplasm of lung: (3) Hyponatremia: (4) Acute metabolic encephalopathy: PLAN: Plan RECOMMENDATIONS: 1. Attempt Ventimask for oxygenation 2. Obtain CT head for prognostication 3. Social work to evaluate next of kin/POA 4. Aggressive electrolyte repletion 5. Pause 3% saline. Frequent BMPs. Attempt sodium correction at 0.5-1/h IMPRESSIONS: 1. Acute hypoxic respiratory failure secondary to COPD exacerbation with COVID-19 Unclear etiology. Clinical suspicion for an element of airway obstruction in the setting of COPD. It is unclear at this time whether patient has been on oxygen outside of the hospital setting to determine the patient has chronic hypoxic respiratory failure. We will continue with Ventimask for now. CT of the chest does show a large mediastinal mass without obvious occlusion. This chung s not been worked up, but location is suggestive of small cell lung cancer. Given patient's recent COVID-19, oxygen status and concerns for appropriate next of kin we will hold on any bronchoscopy during this acute hospitalization. 2. Metabolic encephalopathy/severe hyponatremia Patient with a decreased mental status at this time. It is unclear if this is related to hyponatremia versus possible brain mets. Patient would be at risk for stage IV cancer and a paraneoplastic SIADH. Will obtain a CT of the head to rule out hemorrhagic complications, but metastasis is also suspected. Treatment options would likely be severely limited if patient was found to have small cell lung cancer. 3. Hyperlipidemia/hypertension/tobacco abuse/history of rectal cancer/prior GI bleed Complicates care, management, recovery and prognosis. Antihypertensives should be held given patient's lower blood pressure recently. Patient not able to take statin secondary to mental status. We will continue with n.p.o. at this time. Patient's is reportedly a drinker, but it is unclear if patient drinks frequently. May need to watch for signs or symptoms of withdrawal. Patient is to have a PICC line placed. Cannot exclude the need for pressors. 4. Social issues Unclear next of kin at this time. Will default to patient's despite reported drinking unless formal documentation can be obtained. Patient long-term prognosis is extremely guarded given high risk of advanced cancer with limited treatment options. Patient does not appear to have metabolic demand to allow for aggressive intervention with chemotherapy. We will have to discuss with family about CODE STATUS given recent developments. HPI Consult Data Date of Consult: 01/10/22 HPI Narrative Reason for Consultation: Encephalopathy/hyponatremia HPI Narrative: XIN JUAREZ is a 71 F, with past medical history listed below, who presents to [facility] on 01/09/2022 secondary to confusion and agitation. Patient reportedly was recently hospitalized at [facility] after presenting to one of their other facilities with COVID and a CTA showing lung masses. Patient reportedly was discharged yesterday and was not given any paperwork. Patient reportedly was sent home on 4 L nasal cannula and over the course of 24 hours became increasingly agitated and confused. Patient reportedly had been removing her pulse ox intermittently. In the ER, patient was afebrile, but tachycardic at 111 bpm. Patient was hypertensive at 183/86 and requiring between 4 and 10 L nasal cannula to maintain saturations. Laboratory data showed a white blood cell count of 30.3, hemoglobin of 13.7 and platelets of 498. Sodium was noted to be 114 with 68 c hloride and 2.7 potassium. Renal function was within normal limits. Ammonia level was noted to be 31. Patient did have a mild elevation of total bilirubin, but other LFTs were unremarkable. A VBG showed an alkalotic pH of 7.51. Chest x-ray showed a nodular opacity in the right upper lobe. Patient was initiated on Solu-Medrol and Combivent. Troponin was within normal limits. Patient was initiated on hypertonic saline and admitted to the intensive care unit for further evaluation. Since being in the intensive care unit, patient has not able to provide any additional history. Patient remains confused and impulsive. Patient was placed on a Precedex drip. Patient's oxygen requirements have been highly variable, especially with sleep. Patient had some venous access issues, but a PICC line has been ordered. Patient also has had some lower blood pressures. Outside facility was contacted and CTs have been uploaded to our system. Able to personally review CT scan of the chest and this appears to show stage III-IV lung cancer, likely small cell with a large right hilar infiltrate and to smaller masses. No CT scan of the head has been completed at the outside facility. Attempts to gain information from family have been difficult. Patient's sister reports that she is the POA but does not have paperwork. Patient's is a drunk per the patient's sister. Attempts to reach the have been unsuccessful. [facility] Medical History COPD (chronic obstructive pulmonary disease) Diarrhea DVT (deep venous thrombosis) Hemorrhoids Hyperlipidemia Hypertension Malignant neoplasm of rectum Home Medications atorvastatin 20 mg tablet 20 mg PO QHS 09/13/14 [History Last Taken Unknown] benazepril 40 mg tablet 40 mg PO DAILY 09/13/14 [History Last Taken 09/14/14 08:00] hydrochlorothiazide 25 mg tablet 25 mg PO DAILY 09/13/14 [History Last Taken Unknown] albuterol sulfate 90 mcg/actuation aerosol inhaler 2 puff inhalation Q4H PRN PRN Shortness Of Breath 09/27/14 [History Last Taken Unknown] potassium chloride 20 mEq tablet,extended release 20 meq PO BID 09/27/14 [History Last Taken Unknown] loperamide 2 mg capsule 2 mg PO 4X/DAY PRN PRN Diarrhea 10/02/14 [History Last Taken Unknown] Allergy/AdvReac Type Severity Reaction Status Date / Time bacitracin AdvReac Severe Itching Verified 01/09/22 18:44 hydrogen peroxide AdvReac Severe Itching Verified 01/09/22 18:44 oxycodone HCl [From Percocet] AdvReac Severe Itching Verified 01/09/22 18:44 Family History Father Prostate cancer Diabetes Arthritis Heart disease Mother CVA (cerebral vascular accident) Hypertension Surgical History ANKLE/HEEL SURGERY RIGHT BENIGN AXILLARY MASS REMOVAL, LEFT History of colectomy RECTAL SURGERY WITH BOWEL OBSTRUCTION Social History household members: spouse Smoking Status: Former smoker how long ago did patient quit smoking: Quit 05/21/2014 tobacco use. alcohol intake: current alcohol intake frequency: holidays/special occasions only substance use type: does not use caffeine: Yes what type of physical activity do you participate in: none frequency: does not exercise ROS Review of Systems ROS Unobtainable: due to mental status Physical Exam Const Constitutional Narrative: Appears older than stated age. Spontaneous movement of all extremities, but not following commands. General Appearance: lethargic and frail HEENT normocephalic and head/scalp atraumatic Eyes PERRL and EOMs intact bilaterally Sclera: sclera abnormal Positive for bilateral Details: scleral injection Neck full ROM General: trachea midline Chest Chest: abnormal inspection of the chest increased A-P diameter Resp Effort and Inspection: prolonged expiratory phase Auscultation: diminished lung sounds; Negative for rales, rhonchi or wheezes Cardio regular rate, regular rhythm, S1 normal heart sound, S2 normal heart sound, no murmurs, no rub and no gallops GI normal to inspection, nondistended, normoactive bowel sounds Extremity General Extremity: clubbing; Negative for edema Skin Skin Narrative: Dermal atrophy appreciated Neuro moves all extremities and no focal motor deficits Neuro Narrative: Not following commands. Spontaneous movement noted. Psych Activity / Motor Behavior: restless Mood & Affect: labile affect Medical Records Data Attestation: I reviewed the patient's medical records (Outside imaging was uploaded to EMR for review personally) Lab / Micro Data Attestation: I reviewed the patient's lab results. Result Diagrams: 01/10/22 09:45 01/10/22 07:45 Labs: Laboratory Results - last 24 hr 01/09/22 20:13: WBC 30.3 H*, RBC 4.76, Hgb 13.7, Hct 38.8, MCV 81.5, MCH 28.8, MCHC 35.3, RDW Std Deviation 37.1, RDW Coeff of [place] 12.4, Plt Count 498 H, MPV 9.9, Immature Gran % (Auto) 2.100 H, Neut % (Auto) 88.5 H, Lymph % (Auto) 1.3 L, [place] % (Auto) 7.4, Eos % (Auto) 0.4, Baso % (Auto) 0.3, Absolute Neuts (auto) 26.8 H, Absolute Lymphs (auto) 0.38 L, Nucleated RBC % 0.1, Differential Comment SCANNED, Diff Path Review July01/09/22 20:13: Sodium 114 L*, Potassium 2.7 L*, Chloride 68 L*, Carbon Dioxide 34.0 H, Anion Gap 12, BUN 11, Creatinine 0.49 L, Estim Creat Clear Calc 35.10, Est GFR (MDRD) Af Amer 159, Est GFR (MDRD) Non-Af 132, BUN/Creatinine Ratio 22.4 H, Glucose 117 H, Calcium 8.1 L, Total Bilirubin 1.30 H, Direct Bilirubin 0.19, AST 33, ALT 31, Alkaline Phosphatase 96, Troponin I High Sens 51, Total Protein 6.7, Albumin 3.6, Globulin 3.1 01/09/22 20:13: Ammonia 31.0 01/09/22 22:40: Urine Color Straw, Urine Clarity Clear, Urine pH 7.0, Ur Specific [place] 1.010, Urine Protein 30 H, Urine Glucose (UA) 50 H, Urine Ketones 50 H, Urine Occult Blood 25 H, Urine Nitrite Negative, Urine Bilirubin Negative, Urine Urobilinogen Normal, Ur Leukocyte Esterase Negative, Urine RBC 0-5 SEEN, Urine WBC 0 SEEN, Ur Squamous Epith Cells 0 SEEN, Urine Bacteria RARE, Urine Mucus 0 SEEN 01/09/22 22:40: Sodium 115 L*, Potassium 2.8 L, Chloride 70 L*, Carbon Dioxide 33.0 H, Anion Gap 12, BUN 11, Creatinine 0.44 L, Estim Creat Clear Calc 35.10, Est GFR (MDRD) Af Amer 179, Est GFR (MDRD) Non-Af 148, BUN/Creatinine Ratio 24.8 H, Glucose 90, Calcium 7.9 L 01/09/22 22:40: Troponin I High Sens 78 H 01/09/22 22:40: Urine Osmolality 407, Ur Random Sodium 56, Urine Creatinine 31.90 01/10/22 01:11: Sodium 116 L*, Potassium 2.8 L, Chloride 75 L, Carbon Dioxide 29.0, Anion Gap 12, BUN 11, Creatinine 0.37 L, Estim Creat Clear Calc 38.35, Est GFR (MDRD) Af Amer 222, Est GFR (MDRD) Non-Af 184, BUN/Creatinine Ratio 29.9 H, Glucose 92, Calcium 7.7 L, Magnesium 1.7 01/10/22 01:11: Procalcitonin 0.09 01/10/22 01:11: TSH 0.96 01/10/22 07:45: Sodium 122 L, Potassium 3.2 L, Chloride 86 L, Carbon Dioxide 27.0, Anion Gap 9, BUN 12, Creatinine 0.44 L, Estim Creat Clear Calc 38.37, Est GFR (MDRD) Af Amer 180, Est GFR (MDRD) Non-Af 149, BUN/Creatinine Ratio 27.2 H, Glucose 102, Calcium 6.7 L ABG Data ABG results: ABG 01/09/22 01/10/22 20:14 03:09 Specimen Type JENNIFER ART Sample Site L Brach pH 7.36 Bicarbonate Actual 31.6 H Total CO2 33 Base Excess 6 H O2 Saturation 96 O2 % 100 ABG pCO2 56.4 H ABG pO2 90 [place] Test Positive VBG pH 7.51 H VBG pO2 46 H VBG HCO3 34 H VBG Total CO2 36 H VBG O2 Sat (Calc) 85 H VBG Base Excess 11 H POC Mix VBG pCO2 Pt Tmp 42.5 O2 Delivery Device Cannula BiPAP Liter Flow 6.0 Clinical Comments 10/01 12 100% Attestation: I personally reviewed and interpreted this ABG as follows: (Partially compensated respiratory acidosis with increased AA gradient) Radiology Impression Chest X-Ray 01/09/22 19:58 IMPRESSION: Pulmonary hyperinflation with vague nodular opacity in the right upper lobe overlying the right sixth rib posteriorly further evaluation with CT scan of the chest may be beneficial. There is no acute pulmonary abnormality. Electronically Signed: Tayo Grubbs MD at 20:34 EDT , Chest X-Ray 01/10/22 04:21 IMPRESSION: There is hyperinflation of the lungs consistent with chronic obstructive lung disease (COPD). Electronically Signed: Yin Zhang MD at 4:50 EDT , Charges/Coding Visit Charges Inpatient E&M: 54885 Init Hosp L3
[2022-01-10 09:54] LABS: Absolute Lymphocyte Count 0.29 X10^3/uL (0.83-4.51); Absolute Neutrophil Count 12.4 X10^3/uL (2.0-7.7); Basophil# 0.03 X10^3/uL; Basophil% 0.2 % (0-1); Hematocrit 32.4 % (37-47); Hemoglobin 10.8 g/dL (12.0-15.0); Lymphocyte # 0.29 X10^3/ul (0.83-4.51); Lymphocyte % 2.2 % (19-41); Mean Corp Hgb Conc 33.3 g/dL (32-36); Mean Corpuscular Hgb 28.6 pg (27.0-32.0); Mean Corpuscular Volume 85.9 fL (81-99); Mean Platelet Vol. 9.8 fl (6.2-12.0); Monocyte# 0.48 X10^3/uL; Monocyte% 3.6 % (0-10); NRBC Flagged by Analyzer 0 % (0-5); Neutrophil # 12.36 X10^3/uL (2.7-7.7); Neutrophil % 92.8 % (47-70); POSITIVE DIFFERENTIAL YES; Platelet Count 245 K/mm3 (150-450); RBC Distribution Width CV 12.7 % (11.6-14.6); RBC Distribution Width SD 39.8 fl (35.1-43.9); Red Blood Count 3.77 M/mm3 (4.2-5.4); White Blood Count 13.3 K/mm3 (4.4-11.0)
[2022-01-10 09:55] LABS: Differential Indicated SCAN CRITERIA MET
[2022-01-10 10:05] LABS: Anion Gap 9 (5-15); BUN 13 mg/dL (7-18); BUN/Creat Ratio 27.3 RATIO (10-20); Chloride 88 mmol/L (98-107); Creatinine, Serum 0.48 mg/dL (0.55-1.02); EST Glomerular Filtration Rate 137 mL/min (>60); Est Glom Filt Rate - Afr Amer 165 mL/min (>60); Estimated Creatinine Clearance 38.37 ml/min; Glucose 105 mg/dL (74-106); Potassium 3.4 mmol/L (3.5-5.1); Sodium Level 125 mmol/L (136-145)
--- NOTE | 2022-01-10 10:17 | PN.HOSP_ITS ---
Subjective Subjective Had some agitation overnight however she has significant pulmonary tumor burden so the situation was discussed with the supervisor stone and they will hold off intubation for now, she was changed over to Precedex Objective Data Objective Data Vital Signs: Vital Signs Temp Pulse Resp BP Pulse Ox O2 Del Method O2 Flow Rate 98.3 F 72 12 98/56 L 100 Non-Rebreather 15 01/10/22 08:00 01/10/22 09:00 01/10/22 09:00 01/10/22 09:00 01/10/22 09:00 01/10/22 09:00 01/10/22 09:00 FiO2 100 01/10/22 09:00 Oxygen Flow Rate (L/min) 15 Oxygen Delivery Method Non-Rebreather Weight: 103 lb 13.404 oz Body Mass Index (BMI) 17.2 Intake & Output: Intake and Output for Last 24 Hours 01/09/22 01/10/22 01/11/22 03:59 03:59 03:59 Intake Total 1517.50 / 1517.50 1548.05 / 1548.05 Output Total 800 / 800 400 / 400 Balance 717.50 / 717.50 1148.05 / 1148.05 Lab / Micro Data Result Diagrams: 01/10/22 09:45 01/10/22 09:45 Labs: Laboratory Results - last 24 hr 01/09/22 20:13: WBC 30.3 H*, RBC 4.76, Hgb 13.7, Hct 38.8, MCV 81.5, MCH 28.8, MCHC 35.3, RDW Std Deviation 37.1, RDW Coeff of [place] 12.4, Plt Count 498 H, MPV 9.9, Immature Gran % (Auto) 2.100 H, Neut % (Auto) 88.5 H, Lymph % (Auto) 1.3 L, [place] % (Auto) 7.4, Eos % (Auto) 0.4, Baso % (Auto) 0.3, Absolute Neuts (auto) 26.8 H, Absolute Lymphs (auto) 0.38 L, Nucleated RBC % 0.1, Differential Comment SCANNED, Diff Path Review July01/09/22 20:13: Sodium 114 L*, Potassium 2.7 L*, Chloride 68 L*, Carbon Dioxide 34.0 H, Anion Gap 12, BUN 11, Creatinine 0.49 L, Estim Creat Clear Calc 35.10, Est GFR (MDRD) Af Amer 159, Est GFR (MDRD) Non-Af 132, BUN/Creatinine Ratio 22.4 H, Glucose 117 H, Calcium 8.1 L, Total Bilirubin 1.30 H, Direct Bilirubin 0.19, AST 33, ALT 31, Alkaline Phosphatase 96, Troponin I High Sens 51, Total Protein 6.7, Albumin 3.6, Globulin 3.1 01/09/22 20:13: Ammonia 31.0 01/09/22 22:40: Urine Color Straw, Urine Clarity Clear, Urine pH 7.0, Ur Specific [place] 1.010, Urine Protein 30 H, Urine Glucose (UA) 50 H, Urine Ketones 50 H, Urine Occult Blood 25 H, Urine Nitrite Negative, Urine Bilirubin Negative, Urine Urobilinogen Normal, Ur Leukocyte Esterase Negative, Urine RBC 0-5 SEEN, Urine WBC 0 SEEN, Ur Squamous Epith Cells 0 SEEN, Urine Bacteria RARE, Urine Mucus 0 SEEN 01/09/22 22:40: Sodium 115 L*, Potassium 2.8 L, Chloride 70 L*, Carbon Dioxide 33.0 H, Anion Gap 12, BUN 11, Creatinine 0.44 L, Estim Creat Clear Calc 35.10, Est GFR (MDRD) Af Amer 179, Est GFR (MDRD) Non-Af 148, BUN/Creatinine Ratio 24.8 H, Glucose 90, Calcium 7.9 L 01/09/22 22:40: Troponin I High Sens 78 H 01/09/22 22:40: Urine Osmolality 407, Ur Random Sodium 56, Urine Creatinine 31.90 01/10/22 01:11: Sodium 116 L*, Potassium 2.8 L, Chloride 75 L, Carbon Dioxide 29.0, Anion Gap 12, BUN 11, Creatinine 0.37 L, Estim Creat Clear Calc 38.35, Est GFR (MDRD) Af Amer 222, Est GFR (MDRD) Non-Af 184, BUN/Creatinine Ratio 29.9 H, Glucose 92, Calcium 7.7 L, Magnesium 1.7 01/10/22 01:11: Procalcitonin 0.09 01/10/22 01:11: TSH 0.96 01/10/22 07:45: Sodium 122 L, Potassium 3.2 L, Chloride 86 L, Carbon Dioxide 27.0, Anion Gap 9, BUN 12, Creatinine 0.44 L, Estim Creat Clear Calc 38.37, Est GFR (MDRD) Af Amer 180, Est GFR (MDRD) Non-Af 149, BUN/Creatinine Ratio 27.2 H, Glucose 102, Calcium 6.7 L 01/10/22 09:45: WBC 13.3 H, RBC 3.77 L, Hgb 10.8 L, Hct 32.4 L, MCV 85.9 D, MCH 28.6, MCHC 33.3 D, RDW Std Deviation 39.8, RDW Coeff of [place] 12.7, Plt Count 245, MPV 9.8, Immature Gran % (Auto) 1.200 H, Neut % (Auto) 92.8 H, Lymph % (Auto) 2.2 L, [place] % (Auto) 3.6, Eos % (Auto) 0.0, Baso % (Auto) 0.2, Absolute Neuts (auto) 12.4 H, Absolute Lymphs (auto) 0.29 L, Nucleated RBC % 0, Differential Comment COMMENT 01/10/22 09:45: Sodium 125 L, Potassium 3.4 L, Chloride 88 L, Carbon Dioxide 28.0, Anion Gap 9, BUN 13, Creatinine 0.48 L, Estim Creat Clear Calc 38.37, Est GFR (MDRD) Af Amer 165, Est GFR (MDRD) Non-Af 137, BUN/Creatinine Ratio 27.3 H, Glucose 105, Calcium 7.0 L ABG Data ABG results: ABG 01/09/22 01/10/22 20:14 03:09 Specimen Type JENNIFER ART Sample Site L Brach pH 7.36 Bicarbonate Actual 31.6 H Total CO2 33 Base Excess 6 H O2 Saturation 96 O2 % 100 ABG pCO2 56.4 H ABG pO2 90 [place] Test Positive VBG pH 7.51 H VBG pO2 46 H VBG HCO3 34 H VBG Total CO2 36 H VBG O2 Sat (Calc) 85 H VBG Base Excess 11 H POC Mix VBG pCO2 Pt Tmp 42.5 O2 Delivery Device Cannula BiPAP Liter Flow 6.0 Clinical Comments 10/01 12 100% Radiography Diagnostic Testing: Radiology Impression Chest X-Ray 01/09/22 19:58 IMPRESSION: Pulmonary hyperinflation with vague nodular opacity in the right upper lobe overlying the right sixth rib posteriorly further evaluation with CT scan of the chest may be beneficial. There is no acute pulmonary abnormality. Electronically Signed: Tayo Grubbs MD at 20:34 EDT , Chest X-Ray 01/10/22 04:21 IMPRESSION: There is hyperinflation of the lungs consistent with chronic obstructive lung disease (COPD). Electronically Signed: Yin Zhang MD at 4:50 EDT , Physical Exam Narrative General: Not following commands, No apparent distress, lethargic HEENT: Atraumatic, PERRLA, EOMI, Normocephalic Oral: Moist Mucosa Neck: Supple, No JVD Lungs: Diminished, normal air movement, No rhonchi, No wheeze, No rales Cardiovascular: Regular rate, Regular Rhythm, Normal S1, Normal S2, No murmurs Abdomen: Soft, Non Tender, Non-Distended, No Hepato-splenomegaly Extremities: No edema, Capillary Refill Less than 3 Seconds Skin: No rashes, No breakdown Musculoskeletal: No Tenderness to Palpation of Joints or Extremities Neurological: Does not follow commands but she does spontaneously move all of her extremities Psych/Mental Status: Restless, lethargic Assessment & Plan Assessment/Plan (1) Encephalopathy acute: PLAN: Plan 1. Acute hypoxic respiratory failure secondary to a COPD exacerbation/possible small cell lung cancer/metabolic encephalopathy ? She did have a recent COVID diagnosis which could have started her on the COPD exacerbation ? We will need to obtain a CT scan of her brain to rule out metastatic disease secondary to her pulmonary mass ? Continue with Precedex and Haldol as needed Continue with Solu-Medrol ? Continue with inhalers ? He does have a history of tobacco abuse 2. HTN/HLD ? Given her hyponatremia, will hold her hydrochlorothiazide ? Continue with as needed hydralazine 3. History of rectal cancer ? Status post resection and partial colectomy ? Considered in remission DVT: Lovenox Charges/Coding Visit Charges Inpatient E&M: 99235 Subs Hosp L2
--- NOTE | 2022-01-10 11:03 | PCM.CONS.R ---
Assessment & Plan Assessment/Plan (1) Hyponatremia: PLAN: sodium 115 to 125 with 3% hypertonic saline. TSH 0.96 suspect SIADH from pulmonary process. Monitor sodium levels. Agree with holding hypertonic saline since sodium changed by 10mmol since admit. Correct sodium 5-10mmol/day to avoid CPM. Agree with discontinuation of HCTZ (2) Acute respiratory failure with hypoxia: PLAN: recent episode of COVID and CAP (3) Encephalopathy acute: PLAN: agitated, poor historian. Baseline unknown. (4) Hypertension: (5) COPD (chronic obstructive pulmonary disease): PLAN: on home oxygen (6) Hypokalemia: PLAN: due to poor intake, replace as needed HPI Consult Data Date of Consult: 01/10/22 HPI Narrative Reason for Consultation: hyponatremia HPI Narrative: XIN JUAREZ, is a [address] to [facility] for confusion, agitation and hypoxia. She was recently discharged from [facility] for respiratory distress, treated for CAP and COVID. Consulted for hyponatremia. Sodium 114 on admit improved to 125 today with 3% hypertonic saline. Urine sodium 56, urine creatinine 32, urine osm 407. Patient unable to provide history due to encephalopathy. Baseline mental status unknown. Extensive chart reviewed. She is on HCTZ and potassium according to home meds. PMH for DVT, GI bleed, COPD with chronic hypoxic respiratory failure (2L NC at home), Tobacco use, HTN, HLD, rectal CA s/p resection. [facility] Medical History COPD (chronic obstructive pulmonary disease) Diarrhea DVT (deep venous thrombosis) Hemorrhoids Hyperlipidemia Hypertension Malignant neoplasm of rectum Home Medications atorvastatin 20 mg tablet 20 mg PO QHS 09/13/14 [History Last Taken Unknown] benazepril 40 mg tablet 40 mg PO DAILY 09/13/14 [History Last Taken 09/14/14 08:00] hydrochlorothiazide 25 mg tablet 25 mg PO DAILY 09/13/14 [History Last Taken Unknown] albuterol sulfate 90 mcg/actuation aerosol inhaler 2 puff inhalation Q4H PRN PRN Shortness Of Breath 09/27/14 [History Last Taken Unknown] potassium chloride 20 mEq tablet,extended release 20 meq PO BID 09/27/14 [History Last Taken Unknown] loperamide 2 mg capsule 2 mg PO 4X/DAY PRN PRN Diarrhea 10/02/14 [History Last Taken Unknown] Allergy/AdvReac Type Severity Reaction Status Date / Time bacitracin AdvReac Severe Itching Verified 01/09/22 18:44 hydrogen peroxide AdvReac Severe Itching Verified 01/09/22 18:44 oxycodone HCl [From Percocet] AdvReac Severe Itching Verified 01/09/22 18:44 Family History Father Prostate cancer Diabetes Arthritis Heart disease Mother CVA (cerebral vascular accident) Hypertension Surgical History ANKLE/HEEL SURGERY RIGHT BENIGN AXILLARY MASS REMOVAL, LEFT History of colectomy RECTAL SURGERY WITH BOWEL OBSTRUCTION Social History household members: spouse Smoking Status: Former smoker how long ago did patient quit smoking: Quit 05/21/2014 tobacco use. alcohol intake: current alcohol intake frequency: holidays/special occasions only substance use type: does not use caffeine: Yes what type of physical activity do you participate in: none frequency: does not exercise ROS Review of Systems ROS Unobtainable: due to encephalopathy Physical Exam Narrative moaning, not following commands, encephalopathic, unable to provide history. Const General Appearance: frail Nutritional Appearance: cachectic HEENT HEENT Narrative: poor dentition Resp Auscultation: diminished lung sounds Cardio regular rate GI non-distended Auscultation: normoactive bowel sounds Palpation: soft Extremity no clubbing, cyanosis or edema Psych Psych Narrative: unable to assess due to MS change Lab / Micro Data Result Diagrams: 01/10/22 09:45 01/10/22 09:45 Labs: Laboratory Results - last 24 hr 01/09/22 20:13: WBC 30.3 H*, RBC 4.76, Hgb 13.7, Hct 38.8, MCV 81.5, MCH 28.8, MCHC 35.3, RDW Std Deviation 37.1, RDW Coeff of [place] 12.4, Plt Count 498 H, MPV 9.9, Immature Gran % (Auto) 2.100 H, Neut % (Auto) 88.5 H, Lymph % (Auto) 1.3 L, [place] % (Auto) 7.4, Eos % (Auto) 0.4, Baso % (Auto) 0.3, Absolute Neuts (auto) 26.8 H, Absolute Lymphs (auto) 0.38 L, Nucleated RBC % 0.1, Differential Comment SCANNED, Diff Path Review July01/09/22 20:13: Sodium 114 L*, Potassium 2.7 L*, Chloride 68 L*, Carbon Dioxide 34.0 H, Anion Gap 12, BUN 11, Creatinine 0.49 L, Estim Creat Clear Calc 35.10, Est GFR (MDRD) Af Amer 159, Est GFR (MDRD) Non-Af 132, BUN/Creatinine Ratio 22.4 H, Glucose 117 H, Calcium 8.1 L, Total Bilirubin 1.30 H, Direct Bilirubin 0.19, AST 33, ALT 31, Alkaline Phosphatase 96, Troponin I High Sens 51, Total Protein 6.7, Albumin 3.6, Globulin 3.1 01/09/22 20:13: Ammonia 31.0 01/09/22 22:40: Urine Color Straw, Urine Clarity Clear, Urine pH 7.0, Ur Specific [place] 1.010, Urine Protein 30 H, Urine Glucose (UA) 50 H, Urine Ketones 50 H, Urine Occult Blood 25 H, Urine Nitrite Negative, Urine Bilirubin Negative, Urine Urobilinogen Normal, Ur Leukocyte Esterase Negative, Urine RBC 0-5 SEEN, Urine WBC 0 SEEN, Ur Squamous Epith Cells 0 SEEN, Urine Bacteria RARE, Urine Mucus 0 SEEN 01/09/22 22:40: Sodium 115 L*, Potassium 2.8 L, Chloride 70 L*, Carbon Dioxide 33.0 H, Anion Gap 12, BUN 11, Creatinine 0.44 L, Estim Creat Clear Calc 35.10, Est GFR (MDRD) Af Amer 179, Est GFR (MDRD) Non-Af 148, BUN/Creatinine Ratio 24.8 H, Glucose 90, Calcium 7.9 L 01/09/22 22:40: Troponin I High Sens 78 H 01/09/22 22:40: Urine Osmolality 407, Ur Random Sodium 56, Urine Creatinine 31.90 01/10/22 01:11: Sodium 116 L*, Potassium 2.8 L, Chloride 75 L, Carbon Dioxide 29.0, Anion Gap 12, BUN 11, Creatinine 0.37 L, Estim Creat Clear Calc 38.35, Est GFR (MDRD) Af Amer 222, Est GFR (MDRD) Non-Af 184, BUN/Creatinine Ratio 29.9 H, Glucose 92, Calcium 7.7 L, Magnesium 1.7 01/10/22 01:11: Procalcitonin 0.09 01/10/22 01:11: TSH 0.96 01/10/22 07:45: Sodium 122 L, Potassium 3.2 L, Chloride 86 L, Carbon Dioxide 27.0, Anion Gap 9, BUN 12, Creatinine 0.44 L, Estim Creat Clear Calc 38.37, Est GFR (MDRD) Af Amer 180, Est GFR (MDRD) Non-Af 149, BUN/Creatinine Ratio 27.2 H, Glucose 102, Calcium 6.7 L 01/10/22 09:45: WBC 13.3 H, RBC 3.77 L, Hgb 10.8 L, Hct 32.4 L, MCV 85.9 D, MCH 28.6, MCHC 33.3 D, RDW Std Deviation 39.8, RDW Coeff of [place] 12.7, Plt Count 245, MPV 9.8, Immature Gran % (Auto) 1.200 H, Neut % (Auto) 92.8 H, Lymph % (Auto) 2.2 L, [place] % (Auto) 3.6, Eos % (Auto) 0.0, Baso % (Auto) 0.2, Absolute Neuts (auto) 12.4 H, Absolute Lymphs (auto) 0.29 L, Nucleated RBC % 0, Differential Comment COMMENT 01/10/22 09:45: Sodium 125 L, Potassium 3.4 L, Chloride 88 L, Carbon Dioxide 28.0, Anion Gap 9, BUN 13, Creatinine 0.48 L, Estim Creat Clear Calc 38.37, Est GFR (MDRD) Af Amer 165, Est GFR (MDRD) Non-Af 137, BUN/Creatinine Ratio 27.3 H, Glucose 105, Calcium 7.0 L ABG Data ABG results: ABG 01/09/22 01/10/22 20:14 03:09 Specimen Type JENNIFER ART Sample Site L Brach pH 7.36 Bicarbonate Actual 31.6 H Total CO2 33 Base Excess 6 H O2 Saturation 96 O2 % 100 ABG pCO2 56.4 H ABG pO2 90 [place] Test Positive VBG pH 7.51 H VBG pO2 46 H VBG HCO3 34 H VBG Total CO2 36 H VBG O2 Sat (Calc) 85 H VBG Base Excess 11 H POC Mix VBG pCO2 Pt Tmp 42.5 O2 Delivery Device Cannula BiPAP Liter Flow 6.0 Clinical Comments 10/01 12 100% Radiology Impression Chest X-Ray 01/09/22 19:58 IMPRESSION: Pulmonary hyperinflation with vague nodular opacity in the right upper lobe overlying the right sixth rib posteriorly further evaluation with CT scan of the chest may be beneficial. There is no acute pulmonary abnormality. Electronically Signed: Tayo Grubbs MD at 20:34 EDT , Chest X-Ray 01/10/22 04:21 IMPRESSION: There is hyperinflation of the lungs consistent with chronic obstructive lung disease (COPD). Electronically Signed: Yin Zhang MD at 4:50 EDT ,
[2022-01-10 12:05] LABS: Urine Chloride 24 mmol/L (Not Establ.)
[2022-01-10 12:53] LABS: Pathologist Review Reviewed
--- NOTE | 2022-01-10 14:15 | RAD_ITS ---
STUDY: X-RAY CHEST REASON FOR EXAM: Female, 71 years old. PICC line placement TECHNIQUE: Single AP portable view of the chest. COMPARISON: Comparison is made with prior examination done earlier today at 4:22 AM. FINDINGS: EKG electrodes are seen. Surgical clips are seen in the right axilla. A right-sided PICC line catheter has been placed. The tip is in the right atrium. Stable volume loss in the right hemithorax with shift of the heart and mediastinum towards the left side. Hyperinflation of the left lung. Mild degree of increased markings in the right lung as compared to prior study. Early infiltrate should be ruled out. There is no demonstrated pleural abnormality. Normal size heart. Normal mediastinum and emile. Normal visualized pulmonary arteries. Normal visualized aortic arch and descending thoracic aorta. Normal visualized thoracic spine. Normal visualized ribs, clavicles, and shoulders. There is no demonstrated abnormality of the visualized soft tissue structures of the upper abdomen. RAD/CXR for Line Placement IMPRESSION: Volume loss in the right hemithorax with increased markings in the right lung. Follow-up is recommended. A right-sided PICC line catheter has been placed with the tip in the right atrium. Electronically Signed: Marc Watts MD at 14:51 EDT ,
[2022-01-10 14:33] LABS: Anion Gap 5 (5-15); BUN 15 mg/dL (7-18); BUN/Creat Ratio 35.1 RATIO (10-20); Calcium,Total 7.1 mg/dL (8.5-10.1); Chloride 91 mmol/L (98-107); Creatinine, Serum 0.43 mg/dL (0.55-1.02); EST Glomerular Filtration Rate 155 mL/min (>60); Est Glom Filt Rate - Afr Amer 187 mL/min (>60); Estimated Creatinine Clearance 38.37 ml/min; Glucose 101 mg/dL (74-106); Potassium 3.8 mmol/L (3.5-5.1); Sodium Level 126 mmol/L (136-145)
--- NOTE | 2022-01-10 14:41 | CASEMGMT ---
Social Work SW attended ICU rounds. Pt's health care POA in question. Phone call to pt Marianne Casarez who states he is unaware of any paperwork regarding HCPOA but that pt would want her sister Ashley Blair to make decisions. Per Marianne, Pt does not have any children. Phone call to pt sister Ashley Blair, who states she is pt's HCPOA but does not have any paperwork indicating this is pt's wishes. Phone call to [facility], [facility] and pts PCP office. None of these facilities have advance directives on file. Phone call back to both Marianne and Ashley and explained that documents have not been found and therefore, pt legal decision maker is pt Marianne Casarez. SW did explain that while Marianne is the point person, he can ask Ashley for her opinion on decisions. Both Marianne and Ashley express understanding. SW will remain available to assist pt with HCPOA paperwork when she is cognitively alert and oriented. Sybil RN updated to above. Patient's legal health care decision maker: Marianne Casarez, NONA [place]
--- NOTE | 2022-01-10 15:45 | RAD_ITS ---
STUDY: X-RAY CHEST REASON FOR EXAM: Female, 71 years old. PICC line placement. TECHNIQUE: Single AP portable view of the chest. COMPARISON: 01/10/2022 (7259). And 01/10/2022 ([id number]) FINDINGS: There is no right-sided PICC line with its tip in the distal superior vena cava. This is pulled back slightly from the previous study. And seen is volume loss in the right lung with mild interstitial changes at the lung bases and small pleural effusions left lung is hyperinflated. There is mediastinal shift to the right. The heart is normal in size. Normal mediastinum and emile. Normal visualized pulmonary arteries. There is atherosclerotic calcification of the aortic arch with tortuosity. No osseous changes. Again seen are surgical clips in the lateral right breast. There is no demonstrated abnormality of the visualized soft tissue structures of the upper abdomen. RAD/CXR for Line Placement IMPRESSION: Adjusted right PICC line without other major interval change. Electronically Signed: Marquez Mack DO at 16:51 EDT ,
[2022-01-10 21:51] LABS: Anion Gap 9 (5-15); BUN 16 mg/dL (7-18); BUN/Creat Ratio 32.9 RATIO (10-20); Calcium,Total 7.4 mg/dL (8.5-10.1); Chloride 93 mmol/L (98-107); Creatinine, Serum 0.49 mg/dL (0.55-1.02); EST Glomerular Filtration Rate 133 mL/min (>60); Est Glom Filt Rate - Afr Amer 161 mL/min (>60); Estimated Creatinine Clearance 38.37 ml/min; Glucose 105 mg/dL (74-106); Potassium 3.4 mmol/L (3.5-5.1); Sodium Level 130 mmol/L (136-145)
[2022-01-11] VITALS (38 sets, daily range): BP systolic 91–186; BP diastolic 44–95; PULSE 73–123; RESP 12–26; TEMP 36.9–37.6; O2SAT 82–100
[2022-01-11] MEDS: Potassium Chloride 10mEq/100mL 10 MEQ/100 ML IV.SOLN. 100 MEQ IV BOLUS ×2 (00:45→01:48)
--- NOTE | 2022-01-11 01:50 | CPS ---
Patient was 87% on 15 lpm high flow nc. patient switched to bipap.
--- NOTE | 2022-01-11 02:22 | NURSING ---
Pt not maintaining O2 sats on 15 L HFNC. RT placed pt back on bipap, precedex gtt restarted d/t pt agitation and restlessness. Sitting at bedside w/ pt at this time d/t pt restlessness.
--- NOTE | 2022-01-11 03:10 | CPS ---
nursing informed rt that patient removed and refused bipap. Patient placed on 15 lpm hfnc.
[2022-01-11] MEDS: 0.9% Saline Lock 10 ML Syringe IV (05:11)
[2022-01-11] MEDS: TITRATION PARAMETER CHANGE 1 EACH IV (05:30)
[2022-01-11 05:57] LABS: Anion Gap 9 (5-15); BUN 15 mg/dL (7-18); BUN/Creat Ratio 31.8 RATIO (10-20); Calcium,Total 7.7 mg/dL (8.5-10.1); Chloride 95 mmol/L (98-107); Creatinine, Serum 0.47 mg/dL (0.55-1.02); EST Glomerular Filtration Rate 138 mL/min (>60); Est Glom Filt Rate - Afr Amer 167 mL/min (>60); Glucose 103 mg/dL (74-106); Potassium 3.9 mmol/L (3.5-5.1); Sodium Level 133 mmol/L (136-145)
--- NOTE | 2022-01-11 07:06 | PN.CC_ITS ---
Assessment & Plan Assessment/Plan (1) Acute respiratory failure with hypoxia: (2) Suspected malignant neoplasm of lung: (3) Hyponatremia: (4) Acute metabolic encephalopathy: PLAN: Plan RECOMMENDATIONS: 1. Attempt Ventimask for oxygenation 2. Discontinue sodium repletion 3. Social work to evaluate next of kin/POA 4. Aggressive electrolyte repletion 5. Okay to space BMPs to daily 6. Consider fluid restriction 7. Discuss goals of therapy with possible outpatient bronchoscopy IMPRESSIONS: 1. Acute hypoxic respiratory failure secondary to COPD exacerbation with COVID-19 Unclear etiology. Clinical suspicion for an element of airway obstruction in the setting of COPD. It is unclear at this time whether patient has been on oxygen outside of the hospital setting to determine the patient has chronic hypoxic respiratory failure. We will continue with Ventimask for now. CT of the chest does show a large mediastinal mass without obvious occlusion. This has not been worked up, but location is suggestive of small cell lung cancer. Given patient's recent COVID-19, oxygen status and concerns for appropriate next of kin we will hold on any bronchoscopy during this acute hospitalization. This could easily be completed as an outpatient. A portion of patient's hypoxia likely secondary to postobstructive events given mediastinal mass 2. Metabolic encephalopathy/severe hyponatremia Patient with a decreased mental status at this time. Patient will need fluid restriction to avoid recurrence. Patient would be at risk for stage IV cancer and a paraneoplastic SIADH. Will obtain a CT of the head to rule out hemorrhagic complications, but metastasis is also suspected. Treatment options would likely be severely limited if patient was found to have small cell lung cancer. 3. Hyperlipidemia/hypertension/tobacco abuse/history of rectal cancer/prior GI bleed Complicates care, management, recovery and prognosis. Antihypertensives should be held given patient's lower blood pressure recently. Patient not able to take statin secondary to mental status. Patient can likely initiate a diet, but fluid restriction will be necessary. Patient's is reportedly a drinker, but it is unclear if patient drinks frequently. May need to watch for signs or symptoms of withdrawal. Patient is to have a PICC line placed. Cannot exclude the need for pressors. 4. Social issues Unclear next of kin at this time. No formal documentation of POA can be produced at this time. This makes the the next of kin. Patient does not appear to have metabolic demand to allow for aggressive intervention with ch emotherapy. We will have to discuss with family about CODE STATUS given recent developments. Subjective Subjective Placed onPatient did okay overnight. Patient continues to have highly variable oxygen requirements. Patient BiPAP for an hour overnight secondary to hypoxia. Patient was able to be taken off of Precedex for short period of time, but this had to be reinitiated overnight secondary to agitation. Patient not answering questions during my evaluation, but nursing reported that she was more appropriate yesterday evening. Objective Data Objective Data Vital Signs: Vital Signs Temp Pulse Resp BP Pulse Ox O2 Del Method O2 Flow Rate 37.1 C 79 12 120/50 L 98 High Flow 8 01/11/22 07:00 01/11/22 07:00 01/11/22 07:00 01/11/22 07:00 01/11/22 07:00 01/11/22 07:00 01/11/22 07:00 FiO2 80 01/11/22 02:15 Oxygen Flow Rate (L/min) 8 Oxygen Delivery Method High Flow Weight: 49.101 kg Body Mass Index (BMI) 17.2 Intake & Output: Intake and Output for Last 24 Hours 01/09/22 01/10/22 01/11/22 23:59 23:59 23:59 Intake Total 1039.17 / 1039.17 2898.02 / 2898.02 338.45 / 338.45 Output Total 2275 / 2275 275 / 275 Balance 1039.17 / 1039.17 623.02 / 623.02 63.45 / 63.45 Lab / Micro Data Attestation: I reviewed the patient's lab results. Result Diagrams: 01/10/22 09:45 01/11/22 04:07 Labs: Laboratory Results - last 24 hr 01/09/22 20:13: Diff Path Review Reviewed 01/10/22 07:45: Sodium 122 L, Potassium 3.2 L, Chloride 86 L, Carbon Dioxide 27. 0, Anion Gap 9, BUN 12, Creatinine 0.44 L, Estim Creat Clear Calc 38.37, Est GFR (MDRD) Af Amer 180, Est GFR (MDRD) Non-Af 149, BUN/Creatinine Ratio 27.2 H, Glucose 102, Calcium 6.7 L 01/10/22 09:45: WBC 13.3 H, RBC 3.77 L, Hgb 10.8 L, Hct 32.4 L, MCV 85.9 D, MCH 28.6, MCHC 33.3 D, RDW Std Deviation 39.8, RDW Coeff of [place] 12.7, Plt Count 245, MPV 9.8, Immature Gran % (Auto) 1.200 H, Neut % (Auto) 92.8 H, Lymph % (Auto) 2.2 L, [place] % (Auto) 3.6, Eos % (Auto) 0.0, Baso % (Auto) 0.2, Absolute Neuts (auto) 12.4 H, Absolute Lymphs (auto) 0.29 L, Nucleated RBC % 0, Differential Comment COMMENT 01/10/22 09:45: Sodium 125 L, Potassium 3.4 L, Chloride 88 L, Carbon Dioxide 28.0, Anion Gap 9, BUN 13, Creatinine 0.48 L, Estim Creat Clear Calc 38.37, Est GFR (MDRD) Af Amer 165, Est GFR (MDRD) Non-Af 137, BUN/Creatinine Ratio 27.3 H, Glucose 105, Calcium 7.0 L 01/10/22 11:45: Urine Chloride 24 01/10/22 14:10: Sodium 126 L, Potassium 3.8, Chloride 91 L, Carbon Dioxide 30.0, Anion Gap 5, BUN 15, Creatinine 0.43 L, Estim Creat Clear Calc 38.37, Est GFR (MDRD) Af Amer 187, Est GFR (MDRD) Non-Af 155, BUN/Creatinine Ratio 35.1 H, Glucose 101, Calcium 7.1 L 01/10/22 21:25: Sodium 130 L, Potassium 3.4 L, Chloride 93 L, Carbon Dioxide 28.0, Anion Gap 9, BUN 16, Creatinine 0.49 L, Estim Creat Clear Calc 38.37, Est GFR (MDRD) Af Amer 161, Est GFR (MDRD) Non-Af 133, BUN/Creatinine Ratio 32.9 H, Glucose 105, Calcium 7.4 L 01/11/22 04:07: Sodium 133 L, Potassium 3.9, Chloride 95 L, Carbon Dioxide 29.0, Anion Gap 9, BUN 15, Creatinine 0.47 L, Estim Creat Clear Calc 40.00, Est GFR (MDRD) Af Amer 167, Est GFR (MDRD) Non-Af 138, BUN/Creatinine Ratio 31.8 H, G lucose 103, Calcium 7.7 L Radiography Diagnostic Testing: Radiology Impression Brain CT 01/10/22 09:36 IMPRESSION: Chronic involutional changes of the brain. Electronically Signed: Marc Watts MD at 11:06 EDT , Chest X-Ray 01/10/22 14:15 IMPRESSION: Volume loss in the right hemithorax with increased markings in the right lung. Follow-up is recommended. A right-sided PICC line catheter has been placed with the tip in the right atrium. Electronically Signed: Marc Watts MD at 14:51 EDT , Chest X-Ray 01/10/22 15:45 IMPRESSION: Adjusted right PICC line without other major interval change. Electronically Signed: Marquez Mack DO at 16:51 EDT , Physical Exam Const Constitutional Narrative: Appears older than stated age. Spontaneous movement of all extremities, but not following commands. On Precedex during my evaluation General Appearance: lethargic and frail HEENT normocephalic and head/scalp atraumatic Eyes PERRL and EOMs intact bilaterally Sclera: sclera abnormal Positive for bilateral Details: scleral injection Neck full ROM General: trachea midline Chest Chest: abnormal inspection of the chest increased A-P diameter Resp Effort and Inspection: prolonged expiratory phase Auscultation: diminished lung sounds; Negative for rales, rhonchi or wheezes Cardio regular rate, regular rhythm, S1 normal heart sound, S2 normal heart sound, no murmurs, no rub and no gallops GI normal to inspection, nondistended, normoactive bowel sounds Extremity General Extremity: clubbing; Negative for edema Skin Skin Narrative: Dermal atrophy appreciated Neuro moves all extremities and no focal motor deficits Neuro Narrative: Not following commands. Spontaneous movement noted. Psych Activity / Motor Behavior: restless Mood & Affect: labile affect Charges/Coding Visit Charges Inpatient E&M: 29067 Subs Hosp L3
[2022-01-11] MEDS: Ipratropium/Albuterol Sulfate 3 ML AMPUL.NEB INHALATION ×4 (07:18→19:00)
--- NOTE | 2022-01-11 09:30 | CASEMGMT ---
RN NIC Face to Face with patient for initial transition planning/care coordination assessment. RN CM introduced self and role at [facility]. Patient lying in bed, alert and oriented, at bedside. Patient willing to participate in assessment and is able to answer all questions appropriately. Care providers, pharmacy, and demographics verified. Patient wishes to discharge home, but is willing to go to SNF if needed for additional rehab. Patient states she has no further needs or concerns at this time. CM to follow for discharge planning needs that may arise. 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 Patient states she was independent at home prior to current illness Transportation: self, DME/HHC: Patient states she has home oxygen through [employer] but has not been wearing. states she was setup with oxygen when at [place] and was discharged to wear 4lpm. Patient has concentrator, portable tanks, nebulizer at home. Patient states she has had HHC in the past. No previous SNF. Disposition Plan: TBD, will monitor progress with therapy. Anticipate SNF at discharge. Sharon CASTILLO, RN, CM
--- NOTE | 2022-01-11 09:45 | PN.HOSP_ITS ---
Subjective Subjective No new issues overnight, she was back down to a Ventimask we will try to get her onto nasal cannula is much as possible. She was on BiPAP temporarily overnight Objective Data Objective Data Vital Signs: Vital Signs Temp Pulse Resp BP Pulse Ox O2 Del Method O2 Flow Rate 98.6 F 73 12 121/53 H 93 High Flow 5 01/11/22 08:00 01/11/22 09:00 01/11/22 09:00 01/11/22 09:00 01/11/22 09:27 01/11/22 09:27 01/11/22 09:27 FiO2 80 01/11/22 02:15 Oxygen Flow Rate (L/min) 5 Oxygen Delivery Method High Flow Weight: 108 lb 4 oz Body Mass Index (BMI) 17.2 Intake & Output: Intake and Output for Last 24 Hours 01/10/22 01/11/22 01/12/22 03:59 03:59 03:59 Intake Total 1517.50 / 1517.50 2732.06 / 2732.06 46.15 / 46.15 Output Total 800 / 800 1475 / 1475 275 / 275 Balance 717.50 / 717.50 1257.06 / 1257.06 -228.85 / -228.85 Lab / Micro Data Result Diagrams: 01/10/22 09:45 01/11/22 04:07 Labs: Laboratory Results - last 24 hr 01/09/22 20:13: Diff Path Review Reviewed 01/10/22 09:45: WBC 13.3 H, RBC 3.77 L, Hgb 10.8 L, Hct 32.4 L, MCV 85.9 D, MCH 28.6, MCHC 33.3 D, RDW Std Deviation 39.8, RDW Coeff of [place] 12.7, Plt Count 245, MPV 9.8, Immature Gran % (Auto) 1.200 H, Neut % (Auto) 92.8 H, Lymph % (Auto) 2.2 L, [place] % (Auto) 3.6, Eos % (Auto) 0.0, Baso % (Auto) 0.2, Absolute Neuts (auto) 12.4 H, Absolute Lymphs (auto) 0.29 L, Nucleated RBC % 0, Differential Comment COMMENT 01/10/22 09:45: Sodium 125 L, Potassium 3.4 L, Chloride 88 L, Carbon Dioxide 28.0, Anion Gap 9, BUN 13, Creatinine 0.48 L, Estim Creat Clear Calc 38.37, Est GFR (MDRD) Af Amer 165, Est GFR (MDRD) Non-Af 137, BUN/Creatinine Ratio 27.3 H, Glucose 105, Calcium 7.0 L 01/10/22 11:45: Urine Chloride 24 01/10/22 14:10: Sodium 126 L, Potassium 3.8, Chloride 91 L, Carbon Dioxide 30.0, Anion Gap 5, BUN 15, Creatinine 0.43 L, Estim Creat Clear Calc 38.37, Est GFR (MDRD) Af Amer 187, Est GFR (MDRD) Non-Af 155, BUN/Creatinine Ratio 35.1 H, Glucose 101, Calcium 7.1 L 01/10/22 21:25: Sodium 130 L, Potassium 3.4 L, Chloride 93 L, Carbon Dioxide 28.0, Anion Gap 9, BUN 16, Creatinine 0.49 L, Estim Creat Clear Calc 38.37, Est GFR (MDRD) Af Amer 161, Est GFR (MDRD) Non-Af 133, BUN/Creatinine Ratio 32.9 H, Glucose 105, Calcium 7.4 L 01/11/22 04:07: Sodium 133 L, Potassium 3.9, Chloride 95 L, Carbon Dioxide 29.0, Anion Gap 9, BUN 15, Creatinine 0.47 L, Estim Creat Clear Calc 40.00, Est GFR (MDRD) Af Amer 167, Est GFR (MDRD) Non-Af 138, BUN/Creatinine Ratio 31.8 H, Glucose 103, Calcium 7.7 L Radiography Diagnostic Testing: Radiology Impression Brain CT 01/10/22 09:36 IMPRESSION: Chronic involutional changes of the brain. Electronically Signed: Marc Watts MD at 11:06 EDT , Chest X-Ray 01/10/22 14:15 IMPRESSION: Volume loss in the right hemithorax with increased markings in the right lung. Follow-up is recommended. A right-sided PICC line catheter has been placed with the tip in the right atrium. Electronically Signed: Marc Watts MD at 14:51 EDT , Chest X-Ray 01/10/22 15:45 IMPRESSION: Adjusted right PICC line without other major interval change. Electronically Signed: Marquez Mack DO at 16:51 EDT , Physical Exam Narrative General: Not following commands, No apparent distress, lethargic HEENT: Atraumatic, PERRLA, EOMI, Normocephalic Oral: Moist Mucosa Neck: Supple, No JVD Lungs: Diminished, normal air movement, No rhonchi, No wheeze, No rales Cardiovascular: Regular rate, Regular Rhythm, Normal S1, Normal S2, No murmurs Abdomen: Soft, Non Tender, Non-Distended, No Hepato-splenomegaly Extremities: No edema, Capillary Refill Less than 3 Seconds Skin: No rashes, No breakdown Musculoskeletal: No Tenderness to Palpation of Joints or Extremities Neurological: Does not follow commands but she does spontaneously move all of her extremities Psych/Mental Status: Restless, lethargic Assessment & Plan Assessment/Plan (1) Encephalopathy acute: PLAN: Plan 1. Acute hypoxic respiratory failure secondary to a COPD exacerbation/possible small cell lung cancer/metabolic encephalopathy/SIADH ? She did have a recent COVID diagnosis which could have started her on the COPD exacerbation ? We will need to obtain a CT scan of her brain to rule out metastatic disease secondary to her pulmonary mass ? Continue with Precedex and Haldol as needed Continue with Solu-Medrol ? Continue with inhalers ? He does have a history of tobacco abuse ? We will discontinue sodium repletion 2. HTN/HLD ? Given her hyponatremia, will hold her hydrochlorothiazide ? Continue with as needed hydralazine 3. History of rectal cancer ? Status post resection and partial colectomy ? Considered in remission DVT: Lovenox Charges/Coding Visit Charges Inpatient E&M: 12016 Subs Hosp L2
[2022-01-11] MEDS: Menthol/Lanolin/Calamine/Znox 113 GM Tube 1 APPLIC TOPICAL ×4 (10:01→21:55)
[2022-01-11] MEDS: Enoxaparin 40 MG/0.4 ML Syringe SC (10:02)
[2022-01-11] MEDS: QUEtiapine 25 MG Tablet 50 MG PO (14:11)
[2022-01-11] MEDS: LORazepam 2 MG/ML Syringe IV (14:47)
--- NOTE | 2022-01-11 16:40 | CASEMGMT ---
ANDREE printed out patient choices via careport for SNF. SW went to patient's room and patient was asleep. RN said that she had just medicated patient. ANDREE put Advanced Directive and careport list of SNF's in patient's room. ANDREE will update this in daily report. Antonia LEOS
[2022-01-12] VITALS (33 sets, daily range): BP systolic 120–179; BP diastolic 54–86; PULSE 64–152; RESP 15–25; TEMP 36.9–37.9; O2SAT 84–97
[2022-01-12] MEDS: 0.9% Saline Lock 10 ML Syringe IV ×6 (04:20→21:33)
[2022-01-12 04:41] LABS: Absolute Lymphocyte Count 0.16 X10^3/uL (0.83-4.51); Absolute Neutrophil Count 16.9 X10^3/uL (2.0-7.7); Basophil# 0.02 X10^3/uL; Basophil% 0.1 % (0-1); Hematocrit 31.2 % (37-47); Hemoglobin 10.3 g/dL (12.0-15.0); Lymphocyte # 0.16 X10^3/ul (0.83-4.51); Lymphocyte % 0.9 % (19-41); Mean Corpuscular Hgb 28.6 pg (27.0-32.0); Mean Corpuscular Volume 86.7 fL (81-99); Monocyte# 0.78 X10^3/uL; Monocyte% 4.3 % (0-10); NRBC Flagged by Analyzer 0 % (0-5); Neutrophil # 16.86 X10^3/uL (2.7-7.7); POSITIVE DIFFERENTIAL YES; Platelet Count 287 K/mm3 (150-450); RBC Distribution Width CV 13.5 % (11.6-14.6); RBC Distribution Width SD 42.3 fl (35.1-43.9); White Blood Count 18.3 K/mm3 (4.4-11.0)
[2022-01-12 04:47] LABS: Differential Indicated SCAN CRITERIA MET
[2022-01-12 05:07] LABS: Magnesium 2.1 mg/dL (1.6-2.6); Phosphorus 1.9 mg/dL (2.5-4.9)
[2022-01-12 05:16] LABS: Differential Comment SCANNED
[2022-01-12 05:18] LABS: Anion Gap 7 (5-15); BUN 15 mg/dL (7-18); BUN/Creat Ratio 32.4 RATIO (10-20); Chloride 97 mmol/L (98-107); Creatinine, Serum 0.46 mg/dL (0.55-1.02); EST Glomerular Filtration Rate 141 mL/min (>60); Est Glom Filt Rate - Afr Amer 171 mL/min (>60); Estimated Creatinine Clearance 38.87 ml/min; Glucose 98 mg/dL (74-106); Potassium 3.5 mmol/L (3.5-5.1); Sodium Level 136 mmol/L (136-145)
--- NOTE | 2022-01-12 07:06 | PCM.PN.INT ---
Assessment & Plan Assessment/Plan (1) Acute respiratory failure with hypoxia: (2) Suspected malignant neoplasm of lung: (3) Hyponatremia: (4) Acute metabolic encephalopathy: PLAN: Plan RECOMMENDATIONS: 1. Aggressive pulmonary toileting 2. Initiate fluid restriction 3. Increase activity as tolerated 4. Aggressive electrolyte repletion 5. Anticipate bronchoscopy as an outpatient 6. Okay to leave the intensive care unit 7. Narrow antibiotics pending culture results IMPRESSIONS: 1. Acute hypoxic respiratory failure secondary to COPD exacerbation with COVID-19 Unclear etiology. Clinical suspicion for an element of airway obstruction in the setting of COPD. It is unclear at this time whether patient has been on oxygen outside of the hospital setting to determine the patient has chronic hypoxic respiratory failure. We will continue with Ventimask for now. CT of the chest does show a large mediastinal mass without obvious occlusion. This has not been worked up, but location is suggestive of small cell lung cancer. Given patient's recent COVID-19, oxygen status and concerns for appropriate next of kin we will hold on any bronchoscopy during this acute hospitalization. This could easily be completed as an outpatient. A portion of patient's hypoxia likely secondary to postobstructive events given mediastinal mass, so pulmonary toileting should be encouraged 2. Metabolic encephalopathy/severe hyponatremia Patient with a decreased mental status at this time. Patient will need fluid restriction to avoid recurrence. Patient would be at risk for stage IV cancer and a paraneoplastic SIADH. CT of the head done during hospitalization does not show any obvious masses. Treatment options would likely be severely limited if patient was found to have small cell lung cancer. Initiate fluid restriction 3. Hyperlipidemia/hypertension/tobacco abuse/history of rectal cancer/prior GI bleed Complicates care, management, recovery and prognosis. Antihypertensives should be held given patient's lower blood pressure recently. Patient not able to take statin secondary to mental status. Patient can likely initiate a diet, but fluid restriction will be necessary. Patient's is reportedly a drinker, but it is unclear if patient drinks frequently. May need to watch for signs or symptoms of withdrawal. Patient is to have a PICC line placed. We will reinitiate BHARATI inhibitor 4. Social issues Unclear next of kin at this time. No formal documentation of POA can be produced at this time. This makes the the next of kin. Patient does not appear to have metabolic demand to allow for aggressive intervention with chemotherapy. We will have to discuss with family about CODE STATUS given recent developments. 5. Enterococcus UTI Patient recently hospitalized at [facility]. Initiated on antibiotics on 01/11/2022. Likely narrow spectrum once sensitivities available. Subjective Subjective Patient did well overnight. Patient did have some hypotension associated with Ativan. No acute interventions were required. Patient is more interactive this morning and asking for water. Patient is denying any pain. Nursing is reporting a wet cough that is relatively nonproductive. Objective Data Objective Data Vital Signs: Vital Signs Temp Pulse Resp BP Pulse Ox O2 Del Method O2 Flow Rate 37.0 C 116 H 16 176/76 H 92 Nasal Cannula 3 01/12/22 07:00 01/12/22 07:00 01/12/22 07:00 01/12/22 07:00 01/12/22 07:00 01/12/22 07:00 01/12/22 07:00 FiO2 40 01/12/22 02:00 Oxygen Flow Rate (L/min) 3 Oxygen Delivery Method Nasal Cannula Weight: 47.718 kg Body Mass Index (BMI) 17.2 Intake & Output: Intake and Output for Last 24 Hours 01/10/22 01/11/22 01/12/22 23:59 23:59 23:59 Intake Total 2898.02 / 2898.02 534.39 / 534.39 160 / 160 Output Total 2275 / 2275 1325 / 1325 320 / 320 Balance 623.02 / 623.02 -790.61 / -790.61 -160 / -160 Lab / Micro Data Attestation: I reviewed the patient's lab results. Result Diagrams: 01/12/22 04:20 01/12/22 04:20 Labs: Laboratory Results - last 24 hr 01/12/22 04:20: WBC 18.3 H, RBC 3.60 L, Hgb 10.3 L, Hct 31.2 L, MCV 86.7, MCH 28.6, MCHC 33.0, RDW Std Deviation 42.3, RDW Coeff of [place] 13.5, Plt Count 287, MPV 10.0, Immature Gran % (Auto) 2.700 H, Neut % (Auto) 92.0 H, Lymph % (Auto) 0.9 L, [place] % (Auto) 4.3, Eos % (Auto) 0.0, Baso % (Auto) 0.1, Absolute Neuts (auto) 16.9 H, Absolute Lymphs (auto) 0.16 L, Nucleated RBC % 0, Differential Comment SCANNED 01/12/22 04:20: Sodium 136, Potassium 3.5, Chloride 97 L, Carbon Dioxide 32.0, Anion Gap 7, BUN 15, Creatinine 0.46 L, Estim Creat Clear Calc 38.87, Est GFR (MDRD) Af Amer 171, Est GFR (MDRD) Non-Af 141, BUN/Creatinine Ratio 32.4 H, Glucose 98, Calcium 8.0 L 01/12/22 04:20: Phosphorus 1.9 L, Magnesium 2.1 Micro: Microbiology 01/09/22 22:40 Urine Catheter - Catheter Urine Culture - Preliminary GPC Poss Enterococcus sp Physical Exam Const Constitutional Narrative: Appears older than stated age. General Appearance: frail HEENT normocephalic and head/scalp atraumatic Eyes PERRL, EOMs intact bilaterally, conjunctivae normal and no scleral icterus Neck full ROM General: trachea midline Chest Chest: abnormal inspection of the chest increased A-P diameter Resp Resp Narrative: Wet cough noted. Effort and Inspection: prolonged expiratory phase Auscultation: diminished lung sounds; Negative for rales, rhonchi or wheezes Cardio regular rate, regular rhythm, S1 normal heart sound, S2 normal heart sound, no murmurs, no rub and no gallops GI normal to inspection, nondistended, normoactive bowel sounds Extremity General Extremity: clubbing; Negative for edema Skin Skin Narrative: Dermal atrophy appreciated Neuro CN's II-XII intact bilaterally, moves all extremities and no focal motor deficits Neuro Narrative: Follow simple commands. Spontaneous movement noted. Psych Activity / Motor Behavior: restless Mood & Affect: labile affect Charges/Coding Visit Charges Inpatient E&M: 07933 Subs Hosp L3
[2022-01-12] MEDS: Ipratropium/Albuterol Sulfate 3 ML AMPUL.NEB INHALATION ×3 (07:08→19:18)
[2022-01-12] MEDS: QUEtiapine 25 MG Tablet 50 MG PO (07:31)
[2022-01-12] MEDS: Lisinopril 10 MG Tablet PO (07:32)
--- NOTE | 2022-01-12 09:33 | PCM.PN.HOSP ---
Subjective Subjective No issues overnight, seems to be improving and her respiratory status. Objective Data Objective Data Vital Signs: Vital Signs Temp Pulse Resp BP Pulse Ox O2 Del Method O2 Flow Rate 99.0 F 114 H 20 H 138/62 H 88 Nasal Cannula 1 01/12/22 09:00 01/12/22 09:00 01/12/22 09:00 01/12/22 09:00 01/12/22 09:00 01/12/22 09:00 01/12/22 09:00 FiO2 40 01/12/22 02:00 Oxygen Flow Rate (L/min) 1 Oxygen Delivery Method Nasal Cannula Weight: 105 lb 3.2 oz Body Mass Index (BMI) 17.2 Intake & Output: Intake and Output for Last 24 Hours 01/11/22 01/12/22 01/13/22 03:59 03:59 03:59 Intake Total 2732.06 / 2732.06 222.02 / 222.02 210 / 210 Output Total 1475 / 1475 1325 / 1645 620 / 620 Balance 1257.06 / 1257.06 -1102.98 / -1422.98 -410 / -410 Lab / Micro Data Result Diagrams: 01/12/22 04:20 01/12/22 04:20 Labs: Laboratory Results - last 24 hr 01/12/22 04:20: WBC 18.3 H, RBC 3.60 L, Hgb 10.3 L, Hct 31.2 L, MCV 86.7, MCH 28.6, MCHC 33.0, RDW Std Deviation 42.3, RDW Coeff of [place] 13.5, Plt Count 287, MPV 10.0, Immature Gran % (Auto) 2.700 H, Neut % (Auto) 92.0 H, Lymph % (Auto) 0.9 L, [place] % (Auto) 4.3, Eos % (Auto) 0.0, Baso % (Auto) 0.1, Absolute Neuts (auto) 16.9 H, Absolute Lymphs (auto) 0.16 L, Nucleated RBC % 0, Differential Comment SCANNED 01/12/22 04:20: Sodium 136, Potassium 3.5, Chloride 97 L, Carbon Dioxide 32.0, Anion Gap 7, BUN 15, Creatinine 0.46 L, Estim Creat Clear Calc 38.87, Est GFR (MDRD) Af Amer 171, Est GFR (MDRD) Non-Af 141, BUN/Creatinine Ratio 32.4 H, Glucose 98, Calcium 8.0 L 01/12/22 04:20: Phosphorus 1.9 L, Magnesium 2.1 Micro: Microbiology 01/09/22 22:40 Urine Catheter - Catheter Urine Culture - Final Enterococcus spp Physical Exam Narrative General: No apparent distress, lethargic HEENT: Atraumatic, PERRLA, EOMI, Normocephalic Oral: Moist Mucosa Neck: Supple, No JVD Lungs: Diminished, normal air movement, No rhonchi, No wheeze, No rales Cardiovascular: Regular rate, Regular Rhythm, Normal S1, Normal S2, No murmurs Abdomen: Soft, Non Tender, Non-Distended, No Hepato-splenomegaly Extremities: No edema, Capillary Refill Less than 3 Seconds Skin: No rashes, No breakdown Musculoskeletal: No Tenderness to Palpation of Joints or Extremities Neurological: Does not follow commands but she does spontaneously move all of her extremities Psych/Mental Status: Restless, lethargic Assessment & Plan Assessment/Plan (1) Encephalopathy acute: PLAN: Plan 1. Acute hypoxic respiratory failure secondary to a COPD exacerbation/possible small cell lung cancer/metabolic encephalopathy/SIADH ? She did have a recent COVID diagnosis which could have started her on the COPD exacerbation ? CT scan of her brain was negative for metastatic disease ? Continue with Precedex and Haldol as needed ? Continue with Solu-Medrol ? Continue with inhalers ? She does have a history of tobacco abuse ? We will discontinue sodium repletion 2. HTN/HLD ? Given her hyponatremia, will hold her hydrochlorothiazide ? Continue with as needed hydralazine 3. History of rectal cancer ? Status post resection and partial colectomy ? Considered in remission 4. Enterococcus UTI ? Can likely transition to Cipro based on sensitivities DVT: Lovenox Charges/Coding Visit Charges Inpatient E&M: 69834 Subs Hosp L2
[2022-01-12] MEDS: Menthol/Lanolin/Calamine/Znox 113 GM Tube 1 APPLIC TOPICAL ×2 (10:03→21:21)
--- NOTE | 2022-01-12 10:20 | NURSING ---
education re chronic illness deferred till acute illness resolving
[2022-01-12] MEDS: Ensure Plus High Protein 120 ML LIQUID PO (12:33)
--- NOTE | 2022-01-12 13:15 | NURSING ---
pt sent visitors home. She became very anxious/restless in the bed, c/o nausea/SOB/feeling sick. Zofran given for c/o nausea. all disc w/Dr. Dumont. orders recd. ativan po given. pt gradually becoming lest anxious.
[2022-01-12] MEDS: hydrALAZINE 20 MG/ML Vial 10 MG IV (13:20)
[2022-01-12] MEDS: Ondansetron 4 MG/2 ML Vial IV (13:29)
[2022-01-12] MEDS: Acetaminophen 325 MG Tablet 650 MG PO (13:59)
[2022-01-12] MEDS: LORazepam 0.5 MG Tablet PO (14:00)
--- NOTE | 2022-01-12 15:17 | NURSING ---
report called to [facility]
[2022-01-12] MEDS: Metoprolol Tartrate 5 MG/5 ML Vial 2.5 MG IV (15:29)
[2022-01-12] MEDS: QUEtiapine 25 MG Tablet PO (21:23)
[2022-01-12] MEDS: Metoprolol Tartrate 25 MG Tablet PO (21:43)
--- NOTE | 2022-01-12 23:20 | CPS ---
Pt refused BIPAP
[2022-01-13] VITALS (24 sets, daily range): BP systolic 136–168; BP diastolic 57–78; PULSE 92–122; RESP 12–20; TEMP 36.1–37.7; O2SAT 94–99
[2022-01-13 05:03] LABS: Hemoglobin 11.8 g/dL (12.0-15.0); Mean Corp Hgb Conc 32.8 g/dL (32-36); Mean Corpuscular Hgb 29.3 pg (27.0-32.0); Mean Corpuscular Volume 89.3 fL (81-99); Mean Platelet Vol. 10.5 fl (6.2-12.0); POSITIVE COUNT YES; POSITIVE DIFFERENTIAL YES; POSITIVE MORPHOLOGY YES; Platelet Count 333 K/mm3 (150-450); RBC Distribution Width CV 13.9 % (11.6-14.6); RBC Distribution Width SD 44.8 fl (35.1-43.9); Red Blood Count 4.03 M/mm3 (4.2-5.4); White Blood Count 21.7 K/mm3 (4.4-11.0)
[2022-01-13 05:10] LABS: Differential Indicated MANUAL DIFF
[2022-01-13] MEDS: 0.9% Saline Lock 10 ML Syringe IV ×2 (05:20→22:10)
[2022-01-13 05:32] LABS: Anion Gap 6 (5-15); BUN 9 mg/dL (7-18); BUN/Creat Ratio 19.8 RATIO (10-20); Calcium,Total 7.9 mg/dL (8.5-10.1); Chloride 95 mmol/L (98-107); Creatinine, Serum 0.46 mg/dL (0.55-1.02); EST Glomerular Filtration Rate 144 mL/min (>60); Est Glom Filt Rate - Afr Amer 174 mL/min (>60); Estimated Creatinine Clearance 38.87 ml/min; Glucose 136 mg/dL (74-106); Potassium 3.4 mmol/L (3.5-5.1); Sodium Level 136 mmol/L (136-145)
[2022-01-13 06:16] LABS: Lymphocyte 1 % (19-41); Metamyelocyte 5 % (0-1); Monocyte 4 % (0-10); Neutrophil-Band 2 % (0-5); Neutrophil-Segmented 88 % (47-70); Total Cells Counted 100 (MANUAL DIFF)
[2022-01-13 06:17] LABS: Absolute Lymphocyte Count 0.22 X10^3/uL (0.83-4.51); Absolute Neutrophil Count 20.6 X10^3/uL (2.0-7.7); Lymphocyte # 0.22 X10^3/ul (0.83-4.51); Neutrophil # 20.64 X10^3/uL (2.7-7.7)
[2022-01-13 06:18] LABS: Platelet Estimate ADEQUATE (ADEQ); Red Cell Morphology NORM C+C NORMAL (NORM C&C)
[2022-01-13] MEDS: Ipratropium/Albuterol Sulfate 3 ML AMPUL.NEB INHALATION ×3 (07:02→19:32)
[2022-01-13] MEDS: Enoxaparin 40 MG/0.4 ML Syringe SC (08:11)
[2022-01-13] MEDS: Lisinopril 10 MG Tablet PO (08:11)
[2022-01-13] MEDS: Potassium Chloride Oral Tablet 20 MEQ 40 MEQ PO (08:11)
[2022-01-13] MEDS: QUEtiapine 25 MG Tablet PO ×2 (08:11→22:03)
[2022-01-13] MEDS: Metoprolol Tartrate 25 MG Tablet PO ×2 (08:11→22:03)
[2022-01-13] MEDS: LORazepam 0.5 MG Tablet PO (08:11)
[2022-01-13] MEDS: Acetaminophen 325 MG Tablet 650 MG PO ×2 (08:11→14:38)
[2022-01-13] MEDS: Menthol/Lanolin/Calamine/Znox 113 GM Tube 1 APPLIC TOPICAL ×3 (08:12→22:06)
--- NOTE | 2022-01-13 10:00 | PN.CC_ITS ---
Assessment & Plan Assessment/Plan (1) Acute respiratory failure with hypoxia: PLAN: Plan RECOMMENDATIONS: 1. Wean supplemental oxygen to maintain saturations at or above 90%. 2. Continue antimicrobials. 3. Continue bronchodilators and steroids. Okay to transition to prednisone fr om my perspective. 4. Encourage incentive spirometer use and mobilize patient as tolerated. 5. Recommend outpatient pulmonary follow-up within 2 weeks of discharge. IMPRESSIONS: 1.??Acute hypoxic respiratory failure secondary to COPD exacerbation with COVID- 19 Clinical suspicion for an element of airway obstruction in the setting of COPD.?CT of the chest does show a large mediastinal mass without obvious occlusion.? This has not been worked up, but appearance and location are concerning for lung cancer. For now, it is reasonable to continue scheduled bronchodilator therapy along with steroids and supplemental oxygen to maintain saturations at or above 90%. Recommend outpatient pulmonary follow-up so that bronchoscopic evaluation and biopsy can be arranged. 2. Enterococcus UTI Continue antimicrobials as ordered. 3.??Hyperlipidemia/hypertension/tobacco abuse/history of rectal cancer/prior GI bleed Complicates care, management, recovery and prognosis.? Continue home medications as indicated. This note was generated with [employer] dictation software. It may contain incorrect words, spelling, and punctuation that were not noted in checking the note before signing. Subjective Subjective The patient was seen and examined at the bedside this morning. Events from the last 24 hours have been reviewed. The patient is currently afebrile, hemodynamically stable and maintaining appropriate oxygen saturations on 2 L/min via nasal cannula. The patient denies any resting dyspnea. She remains on antimicrobials and steroids. Objective Data Objective Data The patient's most recent lab work, culture data and imaging studies have all been personally reviewed. Urine culture dated January 09 was positive for Enterococcus. Vital Signs: Vital Signs Temp Pulse Resp BP Pulse Ox O2 Del Method O2 Flow Rate 98.9 F 92 18 136/68 H 94 Nasal Cannula 2 01/13/22 09:57 01/13/22 09:57 01/13/22 09:57 01/13/22 09:57 01/13/22 09:57 01/13/22 09:57 01/13/22 09:57 FiO2 35 01/13/22 08:38 Oxygen Flow Rate (L/min) 2 Oxygen Delivery Method Nasal Cannula Weight: 103 lb 6.349 oz Body Mass Index (BMI) 17.2 Intake & Output: Intake and Output for Last 24 Hours 01/11/22 01/12/22 01/13/22 23:59 23:59 23:59 Intake Total 534.39 / 534.39 1693.3333 / 1693.3333 200 / 200 Output Total 1325 / 1325 1530 / 1530 850 / 850 Balance -790.61 / -790.61 163.3333 / 163.3333 -650 / -650 Medical Nutrition Assessment Dietitian: Malnutrition Criteria Met Start: 01/12/22 09:37 Freq: Status: Active Protocol: Document 01/12/22 09:37 AG (Rec: 01/12/22 09:37 AG [id number]) Nutrition Malnutrition Evidence of Malnutrition Exists Yes Malnutrition (moderate): Chronic Evidenced By Suboptimal Energy Intake ( Moderate),Physical Changes ( Moderate) Intake Problem Inadequate Oral Intake Etiology related to mental status Signs/Symptoms as evidenced by NPO status x 2 days, estimated PO intake meeting ~50% of estimated energy needs Status Active Problem Clinical Problem Chronic Disease or Condition Related Malnutrition Etiology chronic, moderate malnutrition related to inadequate energy intake Signs/Symptoms as evidenced by estimated PO intake meeting <75% of estimated energy needs >1 month [employer]; 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 Lab / Micro Data Attestation: I reviewed the patient's lab results. Result Diagrams: 01/14/22 04:25 01/14/22 04:25 Labs: Laboratory Results - last 24 hr 01/13/22 04:33: WBC 21.7 H, RBC 4.03 L, Hgb 11.8 L, Hct 36.0 L, MCV 89.3, MCH 29.3, MCHC 32.8, RDW Std Deviation 44.8 H, RDW Coeff of [place] 13.9, Plt Count 333, MPV 10.5, Neut % (Auto) Not Reportable, Absolute Neuts (auto) 20.6 H, Absolute Lymphs (auto) 0.22 L, Total Counted 100, Neutrophils % (Manual) 88 H, Band Neutrophils % 2, Lymphocytes % (Manual) 1 L, Monocytes % (Manual) 4, Metamyelocytes % 5 H, Diff Path Review July, Platelet Estimate ADEQUATE, RBC Morphology NORM C+C 01/13/22 04:33: Sodium 136, Potassium 3.4 L, Chloride 95 L, Carbon Dioxide 35.0 H, Anion Gap 6, BUN 9, Creatinine 0.46 L, Estim Creat Clear Calc 38.87, Est GFR (MDRD) Af Amer 174, Est GFR (MDRD) Non-Af 144, BUN/Creatinine Ratio 19.8, Glucose 136 H, Calcium 7.9 L Micro: Microbiology 01/09/22 22:40 Urine Catheter - Catheter Urine Culture - Final Enterococcus spp Physical Exam Const alert and no apparent distress General Appearance: frail HEENT normocephalic and head/scalp atraumatic Teeth and Ging[place]: poor dentition Eyes PERRL and EOMs intact bilaterally Neck supple General: trachea midline Resp Auscultation: diminished lung sounds; Negative for rales, rhonchi or wheezes Cardio regular rate and regular rhythm GI normal to inspection, nondistended, normoactive bowel sounds Extremity no clubbing, cyanosis or edema Skin no rashes or lesions noted Neuro no focal motor deficits Psych Mood & Affect: flat affect Charges/Coding Visit Charges Inpatient E&M: 24572 Subs Hosp L2
--- NOTE | 2022-01-13 10:07 | CASEMGMT ---
Addendum entered by Sharon Faulkner 01/13/22 10:10: [facility] phone: [phone] fax: [phone]. Jr STEARNS CM Original Note: Call to [facility] in [place] to verify pt's home O2 order and per rep, pt was set up with 4 liters continuous home O2 on 01/08/22. CM to follow. Jr STEARNS CM
[2022-01-13 11:19] LABS: Pathologist Review Reviewed
--- NOTE | 2022-01-13 11:36 | CASEMGMT ---
Discharge Transmission Assembler JIMMY reached out. Patient has been accepted. Pre-cert will be started today. ANDREE Boone notified. Shira SCHMIDT Grill Chef
--- NOTE | 2022-01-13 12:07 | PN.HOSP_ITS ---
Subjective Subjective Patient seen and examined. She feels weak and still feel short of breath. She denies any cough, chest pain, palpitations, dizziness, nausea, vomiting or diarrhea. Review of systems is otherwise negative. She has remained hemodynamically stable. Objective Data Objective Data Vital Signs: Vital Signs Temp Pulse Resp BP Pulse Ox O2 Del Method O2 Flow Rate 98.9 F 101 H 20 H 136/68 H 94 Nasal Cannula 2 01/13/22 09:57 01/13/22 11:06 01/13/22 11:06 01/13/22 09:57 01/13/22 09:57 01/13/22 09:57 01/13/22 09:57 FiO2 35 01/13/22 08:38 Oxygen Flow Rate (L/min) 2 Oxygen Delivery Method Nasal Cannula Weight: 103 lb 6.349 oz Body Mass Index (BMI) 17.2 Intake & Output: Intake and Output for Last 24 Hours 01/11/22 01/12/22 01/13/22 23:59 23:59 23:59 Intake Total 534.39 / 534.39 1693.3333 / 1693.3333 310 / 310 Output Total 1325 / 1325 1530 / 1530 850 / 850 Balance -790.61 / -790.61 163.3333 / 163.3333 -540 / -540 Medical Nutrition Assessment Dietitian: Malnutrition Criteria Met Start: 01/12/22 09:37 Freq: Status: Active Protocol: Document 01/12/22 09:37 AG (Rec: 01/12/22 09:37 [id number]) Nutrition Malnutrition Evidence of Malnutrition Exists Yes Malnutrition (moderate): Chronic Evidenced By Suboptimal Energy Intake ( Moderate),Physical Changes ( Moderate) Intake Problem Inadequate Oral Intake Etiology related to mental status Signs/Symptoms as evidenced by NPO status x 2 days, estimated PO intake meeting ~50% of estimated energy needs Status Active Problem Clinical Problem Chronic Disease or Condition Related Malnutrition Etiology chronic, moderate malnutrition related to inadequate energy intake Signs/Symptoms as evidenced by estimated PO intake meeting <75% of estimated energy needs >1 month DIGITAL MEDIA INTERN; 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 Lab / Micro Data Result Diagrams: 01/13/22 04:33 01/13/22 04:33 Labs: Laboratory Results - last 24 hr 01/13/22 04:33: WBC 21.7 H, RBC 4.03 L, Hgb 11.8 L, Hct 36.0 L, MCV 89.3, MCH 29.3, MCHC 32.8, RDW Std Deviation 44.8 H, RDW Coeff of Cody 13.9, Plt Count 333, MPV 10.5, Neut % (Auto) Not Reportable, Absolute Neuts (auto) 20.6 H, Absolute Lymphs (auto) 0.22 L, Total Counted 100, Neutrophils % (Manual) 88 H, Band Neutrophils % 2, Lymphocytes % (Manual) 1 L, Monocytes % (Manual) 4, Metamyelocytes % 5 H, Diff Path Review Reviewed, Platelet Estimate ADEQUATE, RBC Morphology NORM C+C 01/13/22 04:33: Sodium 136, Potassium 3.4 L, Chloride 95 L, Carbon Dioxide 35.0 H, Anion Gap 6, BUN 9, Creatinine 0.46 L, Estim Creat Clear Calc 38.87, Est GFR (MDRD) Af Amer 174, Est GFR (MDRD) Non-Af 144, BUN/Creatinine Ratio 19.8, Glucose 136 H, Calcium 7.9 L Micro: Microbiology 01/09/22 22:40 Urine Catheter - Catheter Urine Culture - Final Enterococcus spp Physical Exam Const alert and oriented x3 Constitutional Narrative: frail Orientation / Consciousness: lethargic HEENT head/scalp atraumatic, moist oral mucous membranes and oropharynx normal Head and Scalp: normocephalic Mouth: oral and palatal mucosa normal Eyes PERRL, EOMs intact bilaterally and conjunctivae normal Neck no lymphadenopathy Resp Resp Narrative: diminished breath sounds bibasally, bilateral rhonchi and crackles. On 4L of oxygen. Cardio regular rhythm, S1 normal heart sound and S2 normal heart sound Cardio Narrative: sinus tachycardia GI normal to inspection, nondistended, normoactive bowel sounds, soft to palpation, non-tender and non-distended Extremity normal to inspection, full ROM and no clubbing, cyanosis or edema Neuro oriented x3, CN's II-XII intact bilaterally, moves all extremities and no focal motor deficits Sensorium / Orientation: awake and alert Motor Exam: strength 5/5 throughout Psych affect normal Assessment & Plan Assessment/Plan (1) Acute respiratory failure with hypoxia: (2) Encephalopathy acute: (3) Acute metabolic encephalopathy: (4) Hypokalemia: PLAN: Plan #Acute on chronic hypoxic respiratory failure due to COPD exacerbation and COVID 19 infection * on 4L of oxygen. was apparently discharged home on oxygen 4L but had been noncompliant * still on 4L of oxygen * on breathing treatment tih bronchodilators * titrate oxygen to maintain sats > 90% * CT chest showed a large mediastinal mass without obvious occlusion. This concerning for lung cancer. * To follow-up on outpatient basis for bronchoscopy and biopsy. * On IV Solu-Medrol * #Enterococcus UTI: Completed course of Zosyn #Hypokalemia: Potassium is 3.4. Will replace and trend. #Hyperlipidemia: On statin #Hypertension: On lisinopril and metoprolol #History of rectal cancer: Stable DVT prophylaxis: Lovenox Charges/Coding Visit Charges Inpatient E&M: 88550 Subs Hosp L3
--- NOTE | 2022-01-13 13:01 | CASEMGMT ---
Patient does not have a Healthcare Power of Radiologist Chief Of Breast Imaging or Healthcare Living Will. Mely Elizondo TECHNOLOGY RECRUITER KIERSTEN
[2022-01-13] MEDS: Sodium Chloride 0.65% 1 SPRAY SPRAY.BTL 2 SPRAY NASAL (14:34)
--- NOTE | 2022-01-13 15:04 | CASEMGMT ---
There was a misunderstanding and patient nor her family have chosen a facility yet. SW met with patient. Introduced self and role at [facility]. SW explained to patient that therapy and physician are [facility]. SW on Thursday left a list of SNF providers including quality and resource use data and consistent with patient?s preferred geographic region, medical needs, and insurance network were provided from the [employer] Guide. SW found this list and went over it with patient. Patient said she doesn't know and she will wait until she is ready to go. SW explained to patient that SW has to start planning now as her insurance will have to approve. Patient said she doesn't care and will think about it. SW left the list where patient can reach it. Plan: undetermined at this time. Mely BURCH
--- NOTE | 2022-01-13 15:19 | PCM.PN.REN ---
Subjective Subjective transferred to floor, mental status improved. Sodium back to normal. Objective Data Objective Data Vital Signs: Vital Signs Temp Pulse Resp BP Pulse Ox O2 Del Method O2 Flow Rate 99.9 F H 98 16 146/62 H 98 Nasal Cannula 2 01/13/22 14:23 01/13/22 14:23 01/13/22 14:23 01/13/22 14:23 01/13/22 14:23 01/13/22 14:23 01/13/22 14:23 FiO2 35 01/13/22 08:38 Oxygen Flow Rate (L/min) 2 Oxygen Delivery Method Nasal Cannula Weight: 46.9 kg Body Mass Index (BMI) 17.2 Intake & Output: Intake and Output for Last 24 Hours 01/11/22 01/12/22 01/13/22 23:59 23:59 23:59 Intake Total 534.39 / 534.39 1693.3333 / 1693.3333 630 / 630 Output Total 1325 / 1325 1530 / 1530 1450 / 1450 Balance -790.61 / -790.61 163.3333 / 163.3333 -820 / -820 Medical Nutrition Assessment Dietitian: Malnutrition Criteria Met Start: 01/12/22 09:37 Freq: Status: Active Protocol: Document 01/12/22 09:37 AG (Rec: 01/12/22 09:37 [id number]) Nutrition Malnutrition Evidence of Malnutrition Exists Yes Malnutrition (moderate): Chronic Evidenced By Suboptimal Energy Intake ( Moderate),Physical Changes ( Moderate) Intake Problem Inadequate Oral Intake Etiology related to mental status Signs/Symptoms as evidenced by NPO status x 2 days, estimated PO intake meeting ~50% of estimated energy needs Status Active Problem Clinical Problem Chronic Disease or Condition Related Malnutrition Etiology chronic, moderate malnutrition related to inadequate energy intake Signs/Symptoms as evidenced by estimated PO intake meeting <75% of estimated energy needs >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 Lab / Micro Data Result Diagrams: 01/13/22 04:33 01/13/22 04:33 Labs: Laboratory Results - last 24 hr 01/13/22 04:33: WBC 21.7 H, RBC 4.03 L, Hgb 11.8 L, Hct 36.0 L, MCV 89.3, MCH 29.3, MCHC 32.8, RDW Std Deviation 44.8 H, RDW Coeff of Cody 13.9, Plt Count 333, MPV 10.5, Neut % (Auto) Not Reportable, Absolute Neuts (auto) 20.6 H, Absolute Lymphs (auto) 0.22 L, Total Counted 100, Neutrophils % (Manual) 88 H, Band Neutrophils % 2, Lymphocytes % (Manual) 1 L, Monocytes % (Manual) 4, Metamyelocytes % 5 H, Diff Path Review Reviewed, Platelet Estimate ADEQUATE, RBC Morphology NORM C+C 01/13/22 04:33: Sodium 136, Potassium 3.4 L, Chloride 95 L, Carbon Dioxide 35.0 H, Anion Gap 6, BUN 9, Creatinine 0.46 L, Estim Creat Clear Calc 38.87, Est GFR (MDRD) Af Amer 174, Est GFR (MDRD) Non-Af 144, BUN/Creatinine Ratio 19.8, Glucose 136 H, Calcium 7.9 L Micro: Microbiology 01/09/22 22:40 Urine Catheter - Catheter Urine Culture - Final Enterococcus spp Physical Exam Const alert and oriented x3 Nutritional Appearance: cachectic Resp Resp Narrative: oxygen applied, lungs diminished Cardio regular rate Assessment & Plan Assessment/Plan (1) Hyponatremia: PLAN: improved back to normal range. Will sign off. (2) COPD (chronic obstructive pulmonary disease): PLAN: on oxygen
[2022-01-14] VITALS (21 sets, daily range): BP systolic 126–186; BP diastolic 67–88; PULSE 89–247; RESP 17–20; TEMP 36.6–36.8; O2SAT 94–99
--- NOTE | 2022-01-14 00:04 | CPS ---
Pt declined use of Hospital bipap
[2022-01-14] MEDS: LORazepam 0.5 MG Tablet PO ×2 (03:01→20:29)
[2022-01-14 05:28] LABS: Hemoglobin 10.7 g/dL (12.0-15.0); Mean Corp Hgb Conc 32.4 g/dL (32-36); Mean Corpuscular Hgb 28.5 pg (27.0-32.0); Mean Platelet Vol. 10.2 fl (6.2-12.0); POSITIVE COUNT YES; POSITIVE DIFFERENTIAL YES; POSITIVE MORPHOLOGY YES; Platelet Count 282 K/mm3 (150-450); RBC Distribution Width SD 44.7 fl (35.1-43.9); Red Blood Count 3.75 M/mm3 (4.2-5.4); White Blood Count 16.9 K/mm3 (4.4-11.0)
[2022-01-14 05:39] LABS: Differential Indicated MANUAL DIFF
[2022-01-14 05:50] LABS: Anion Gap 6 (5-15); BUN 6 mg/dL (7-18); BUN/Creat Ratio 13.3 RATIO (10-20); Calcium,Total 7.9 mg/dL (8.5-10.1); Chloride 93 mmol/L (98-107); Creatinine, Serum 0.45 mg/dL (0.55-1.02); EST Glomerular Filtration Rate 146 mL/min (>60); Est Glom Filt Rate - Afr Amer 176 mL/min (>60); Estimated Creatinine Clearance 37.55 ml/min; Glucose 133 mg/dL (74-106); Potassium 3.1 mmol/L (3.5-5.1); Sodium Level 137 mmol/L (136-145)
[2022-01-14] MEDS: hydrALAZINE 20 MG/ML Vial 10 MG IV ×2 (06:11→20:37)
[2022-01-14] MEDS: 0.9% Saline Lock 10 ML Syringe IV ×4 (06:13→22:29)
[2022-01-14 06:18] LABS: Metamyelocyte 3 % (0-1); Monocyte 2 % (0-10); Neutrophil-Band 1 % (0-5); Neutrophil-Segmented 94 % (47-70); Total Cells Counted 100 (MANUAL DIFF)
[2022-01-14 06:19] LABS: Absolute Neutrophil Count 16.5 X10^3/uL (2.0-7.7); Neutrophil # 16.53 X10^3/uL (2.7-7.7)
[2022-01-14 06:20] LABS: Platelet Estimate ADEQUATE (ADEQ); Red Cell Morphology NORM C+C NORMAL (NORM C&C)
[2022-01-14] MEDS: Ipratropium/Albuterol Sulfate 3 ML AMPUL.NEB INHALATION ×4 (07:08→20:25)
--- NOTE | 2022-01-14 07:36 | NURSING ---
Charting reviewed with Jeremy STEARNS.
--- NOTE | 2022-01-14 07:40 | ECHOD_ITS ---
Reason For Study: Arrhythmia Procedure This was a 2D Doppler, Color Flow transthoracic echocardiogram. The study was technically difficult. Limited views were obtained. Exam performed portable in patient room. Left Ventricle Normal LV size. Left ventricular systolic function is hyperdynamic. The estimated ejection fraction is 75 %. No regional wall motion abnormalities noted. Right Ventricle Normal RV size. Normal systolic function. Atria The left atrium is mildly enlarged. Normal right atrium. No doppler evidence for ASD. Mitral Valve There is moderate to severe mitral annular calcification. Extension of the mitral annular calcification onto the base of the posterior mitral valve leaflet. Mild focal mitral valve calcification of the anterior leaflet. Trivial mitral valve insufficiency. Tricuspid Valve Normal tricuspid valve. Trivial tricuspid valve insufficiency. Unable to estimate RV systolic pressure due to insufficient tricuspid regurgitant envelope. Aortic Valve Trisinus/trileaflet aortic valve. Mild focal aortic valve calcification. Pulmonic Valve The pulmonic valve is not well visualized. Great Vessels The aortic root is not well visualized. Pericardium/Pleural Thickened pericardium. Moderate pericardial effusion. Based upon the 2D echocardiographic images obtained there is concern of RA diastolic invagination potentially compatible with early cardiac tamponade physiology. MMode/2D Measurements & Calculations LVIDd: 4.7 cm IVSd: 0.72 cm LA dimension: 3.6 cm LVIDs: 3.0 cm LVPWd: 0.85 cm FS: 35.6 % Time Measurements MV dec time: 0.22 sec Doppler Measurements & Calculations MV E max erich: 135.4 cm/sec Lat Peak E' Erich: 7.0 cm/sec Med Peak E' Erich: 3.9 cm/sec MV A max erich: 188.3 cm/sec E/E' lat: 19.4 E/E' med: 34.8 MV E/A: 0.72 MV V2 max: 197.9 cm/sec MV P1/2t max erich: 131.6 cm/sec Ao V2 max: 128.6 cm/sec MV max P.7 mmHg MV P1/2t: 59.7 msec Ao max P.6 mmHg MV V2 mean: 107.2 cm/sec MV mean P.5 mmHg MV dec slope: 646.1 cm/sec2 MV V2 VTI: 29.8 cm MVA(P1/2t): 3.7 cm2 LV V1 max: 116.5 cm/sec PA V2 max: 126.8 cm/sec LV V1 max P.4 mmHg ECHO/Echo Complete Interpretation Summary The study was technically difficult. Limited views were obtained. Left ventricular systolic function is hyperdynamic. The estimated ejection fraction is 75 %. The left atrium is mildly enlarged. There is moderate to severe mitral annular calcification. Extension of the mitral annular calcification onto the base of the posterior mi tral valve leaflet. Mild focal mitral valve calcification of the anterior leaflet. Trivial mitral valve insufficiency. Trivial tricuspid valve insufficiency. Mild focal aortic valve calcification. Thickened pericardium. Moderate pericardial effusion. Based upon the 2D echocardiographic images obtained there is concern of RA snyder tolic invagination potentially compatible with early cardiac tamponade physiology. Unable to estimate RV systolic pressure due to insufficient tricuspid regurgita nt envelope. Ordering Physician: Sayda Owens Referring Physician: Lauren Patterson Performed By: Franco Marie RCS
[2022-01-14] MEDS: Metoprolol Tartrate 25 MG Tablet PO ×2 (08:38→21:29)
[2022-01-14] MEDS: Menthol/Lanolin/Calamine/Znox 113 GM Tube 1 APPLIC TOPICAL ×2 (08:38→13:08)
[2022-01-14] MEDS: Potassium Chloride Oral Tablet 20 MEQ 40 MEQ PO ×2 (08:38→22:28)
[2022-01-14] MEDS: QUEtiapine 25 MG Tablet PO ×2 (08:39→21:30)
[2022-01-14] MEDS: Lisinopril 10 MG Tablet PO (08:39)
[2022-01-14] MEDS: Enoxaparin 40 MG/0.4 ML Syringe SC (08:39)
--- NOTE | 2022-01-14 09:47 | CASEMGMT ---
SW checked in with patient this am to see if she has looked through the list of SNF's. Patient said she would like to go to [place]. ANDREE reviewed patient's insurance website and [facility] in [place] that accepts her insurance. SW let patient know this information and she was in agreement with [facility]. ANDREE sent referral to [facility] via [facility]. Await response. Mely Elizondo MMA FIGHTER KIERSTEN
--- NOTE | 2022-01-14 10:06 | CASEMGMT ---
In response to the misunderstanding with patient wanting [facility]. SW asked d/c planning rn to please cancel the referral that was made to [facility]. Mely Elizondo WOOL FLEECE GRADER KIERSTEN
--- NOTE | 2022-01-14 10:20 | CASEMGMT ---
Patient's Marianne came to [facility] and asked to talk with ANDREE. SW met with patient and Marianne. Damienkimi said he would like patient to go to rehab in [place]. ANDREE let him know SW spoke with patient this am and she requested a [place] facility. ANDREE let Marianne know that [facility] is in network and SW sent a referral. He thanked ANDREE. Plan: d/c to [facility] pending insurance authorization Mely BURCH
--- NOTE | 2022-01-14 10:33 | PN.CC_ITS ---
Assessment & Plan Assessment/Plan (1) Acute respiratory failure with hypoxia: PLAN: Plan RECOMMENDATIONS: 1. Wean supplemental oxygen to maintain saturations at or above 90%. 2. Continue antimicrobials. 3. Continue bronchodilators and steroids. Okay to transition to prednisone fr om my perspective. 4. Encourage incentive spirometer use and mobilize patient as tolerated. 5. Recommend outpatient pulmonary follow-up within 2 weeks of discharge. IMPRESSIONS: 1.??Acute hypoxic respiratory failure secondary to COPD exacerbation with COVID- 19 Clinical suspicion for an element of airway obstruction in the setting of COPD.?CT of the chest does show a large mediastinal mass without obvious occlusion.? This has not been worked up, but appearance and location are concerning for lung cancer. For now, it is reasonable to continue scheduled bronchodilator therapy along with steroids and supplemental oxygen to maintain saturations at or above 90%. Recommend outpatient pulmonary follow-up so that bronchoscopic evaluation and biopsy can be arranged. 2. Enterococcus UTI Continue antimicrobials as ordered. 3.??Hyperlipidemia/hypertension/tobacco abuse/history of rectal cancer/prior GI bleed Complicates care, management, recovery and prognosis.? Continue home medications as indicated. This note was generated with [employer]Med[employer] dictation software. It may contain incorrect words, spelling, and punctuation that were not noted in checking the note before signing. Subjective Subjective The patient was seen and examined at the bedside this morning. Events from the last 24 hours have been reviewed. The patient is currently afebrile, hemodynamically stable and maintaining appropriate oxygen saturations on 2 L/min via nasal cannula. Potassium is low this morning at 3.1. Objective Data Objective Data The patient's most recent lab work, culture data and imaging studies have all been personally reviewed. Urine culture dated January 09 was positive for Enterococcus. Vital Signs: Vital Signs Temp Pulse Resp BP Pulse Ox O2 Del Method O2 Flow Rate 98.3 F 107 H 20 H 178/77 H 96 Nasal Cannula 2 01/14/22 08:51 01/14/22 08:51 01/14/22 08:51 01/14/22 08:51 01/14/22 08:51 01/14/22 09:24 01/14/22 09:24 FiO2 35 01/14/22 03:06 Oxygen Flow Rate (L/min) 2 Oxygen Delivery Method Nasal Cannula Weight: 101 lb 10.13 oz Body Mass Index (BMI) 17.2 Intake & Output: Intake and Output for Last 24 Hours 01/12/22 01/13/22 01/14/22 23:59 23:59 23:59 Intake Total 1693.3333 / 1693.3333 1390 / 1390 500 / 500 Output Total 1530 / 1530 2350 / 2350 1300 / 1300 Balance 163.3333 / 163.3333 -960 / -960 -800 / -800 Medical Nutrition Assessment Dietitian: Malnutrition Criteria Met Start: 01/12/22 09:37 Freq: Status: Active Protocol: Document 01/12/22 09:37 AG (Rec: 01/12/22 09:37 [id number]) Nutrition Malnutrition Evidence of Malnutrition Exists Yes Malnutrition (moderate): Chronic Evidenced By Suboptimal Energy Intake ( Moderate),Physical Changes ( Moderate) Intake Problem Inadequate Oral Intake Etiology related to mental status Signs/Symptoms as evidenced by NPO status x 2 days, estimated PO intake meeting ~50% of estimated energy needs Status Active Problem Clinical Problem Chronic Disease or Condition Related Malnutrition Etiology chronic, moderate malnutrition related to inadequate energy intake Signs/Symptoms as evidenced by estimated PO intake meeting <75% of estimated energy needs >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 Lab / Micro Data Attestation: I reviewed the patient's lab results. Result Diagrams: 01/14/22 04:25 01/14/22 04:25 Labs: Laboratory Results - last 24 hr 01/13/22 04:33: Diff Path Review Reviewed 01/13/22 04:33: Magnesium 2.0 01/14/22 04:25: WBC 16.9 H, RBC 3.75 L, Hgb 10.7 L, Hct 33.0 L, MCV 88.0, MCH 28.5, MCHC 32.4, RDW Std Deviation 44.7 H, RDW Coeff of Cody 14.0, Plt Count 282, MPV 10.2, Neut % (Auto) Not Reportable, Absolute Neuts (auto) 16.5 H, Absolute Lymphs (auto) 0.00 L, Total Counted 100, Neutrophils % (Manual) 94 H, Band Neutrophils % 1, Monocytes % (Manual) 2, Metamyelocytes % 3 H, Diff Path Review July, Platelet Estimate ADEQUATE, RBC Morphology NORM C+C 01/14/22 04:25: Sodium 137, Potassium 3.1 L, Chloride 93 L, Carbon Dioxide 38.0 H, Anion Gap 6, BUN 6 L, Creatinine 0.45 L, Estim Creat Clear Calc 37.55, Est GFR (MDRD) Af Amer 176, Est GFR (MDRD) Non-Af 146, BUN/Creatinine Ratio 13.3, Glucose 133 H, Calcium 7.9 L Micro: Microbiology 01/09/22 22:40 Urine Catheter - Catheter Urine Culture - Final Enterococcus spp Physical Exam Const alert and no apparent distress General Appearance: frail HEENT normocephalic and head/scalp atraumatic Teeth and Gingiva: poor dentition Eyes PERRL and EOMs intact bilaterally Neck supple General: trachea midline Resp Auscultation: diminished lung sounds; Negative for rales, rhonchi or wheezes Cardio regular rate and regular rhythm GI normal to inspection, nondistended, normoactive bowel sounds Extremity no clubbing, cyanosis or edema Skin no rashes or lesions noted Neuro no focal motor deficits Psych Mood & Affect: flat affect Charges/Coding Visit Charges Inpatient E&M: 53319 Subs Hosp L2
--- NOTE | 2022-01-14 11:31 | PN.HOSP_ITS ---
Subjective Subjective Patient seen and examined. She still feels weak. She denies any fever, chills, but is still coughing. Her shortness of breath has improved and she is down to 2L of oxygen. Review of systems is otherwise negative. Objective Data Objective Data Vital Signs: Vital Signs Temp Pulse Resp BP Pulse Ox O2 Del Method O2 Flow Rate 98.3 F 100 20 H 132/70 H 99 Nasal Cannula 2 01/14/22 11:01 01/14/22 11:01 01/14/22 11:01 01/14/22 11:01 01/14/22 11:01 01/14/22 11:01 01/14/22 11:01 FiO2 35 01/14/22 03:06 Oxygen Flow Rate (L/min) 2 Oxygen Delivery Method Nasal Cannula Weight: 101 lb 10.13 oz Body Mass Index (BMI) 17.2 Intake & Output: Intake and Output for Last 24 Hours 01/12/22 01/13/22 01/14/22 23:59 23:59 23:59 Intake Total 1693.3333 / 1693.3333 1390 / 1390 550 / 550 Output Total 1530 / 1530 2350 / 2350 1300 / 1300 Balance 163.3333 / 163.3333 -960 / -960 -750 / -750 Medical Nutrition Assessment Dietitian: Malnutrition Criteria Met Start: 01/12/22 09:37 Freq: Status: Active Protocol: Document 01/12/22 09:37 (Rec: 01/12/22 09:37 [id number]) Nutrition Malnutrition Evidence of Malnutrition Exists Yes Malnutrition (moderate): Chronic Evidenced By Suboptimal Energy Intake ( Moderate),Physical Changes ( Moderate) Intake Problem Inadequate Oral Intake Etiology related to mental status Signs/Symptoms as evidenced by NPO status x 2 days, estimated PO intake meeting ~50% of estimated energy needs Status Active Problem Clinical Problem Chronic Disease or Condition Related Malnutrition Etiology chronic, moderate malnutrition related to inadequate energy intake Signs/Symptoms as evidenced by estimated PO intake meeting <75% of estimated energy needs >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 Lab / Micro Data Result Diagrams: 01/14/22 04:25 01/14/22 04:25 Labs: Laboratory Results - last 24 hr 01/13/22 04:33: Magnesium 2.0 01/14/22 04:25: WBC 16.9 H, RBC 3.75 L, Hgb 10.7 L, Hct 33.0 L, MCV 88.0, MCH 28 .5, MCHC 32.4, RDW Std Deviation 44.7 H, RDW Coeff of Cody 14.0, Plt Count 282, MPV 10.2, Neut % (Auto) Not Reportable, Absolute Neuts (auto) 16.5 H, Absolute Lymphs (auto) 0.00 L, Total Counted 100, Neutrophils % (Manual) 94 H, Band Neutrophils % 1, Monocytes % (Manual) 2, Metamyelocytes % 3 H, Diff Path Review July, Platelet Estimate ADEQUATE, RBC Morphology NORM C+C 01/14/22 04:25: Sodium 137, Potassium 3.1 L, Chloride 93 L, Carbon Dioxide 38.0 H, Anion Gap 6, BUN 6 L, Creatinine 0.45 L, Estim Creat Clear Calc 37.55, Est GFR (MDRD) Af Amer 176, Est GFR (MDRD) Non-Af 146, BUN/Creatinine Ratio 13.3, Glucose 133 H, Calcium 7.9 L Micro: Microbiology 01/09/22 22:40 Urine Catheter - Catheter Urine Culture - Final Enterococcus spp Physical Exam Const alert and oriented x3 Constitutional Narrative: frail Orientation / Consciousness: lethargic HEENT head/scalp atraumatic, moist oral mucous membranes and oropharynx normal Head and Scalp: normocephalic Mouth: oral and palatal mucosa normal Eyes PERRL, EOMs intact bilaterally and conjunctivae normal Neck no lymphadenopathy Resp Resp Narrative: diminished breath sounds bibasally, bilateral rhonchi and crackles. On 2L of oxygen. Cardio regular rate, regular rhythm, S1 normal heart sound and S2 normal heart sound GI normal to inspection, nondistended, normoactive bowel sounds, soft to palpation, non-tender and non-distended Extremity normal to inspection, full ROM and no clubbing, cyanosis or edema Neuro oriented x3, CN's II-XII intact bilaterally, moves all extremities and no focal motor deficits Sensorium / Orientation: awake and alert Motor Exam: strength 5/5 throughout Psych affect normal Assessment & Plan Assessment/Plan (1) Acute respiratory failure with hypoxia: (2) Encephalopathy acute: (3) Acute metabolic encephalopathy: (4) Hypokalemia: PLAN: Plan #Acute on chronic hypoxic respiratory failure due to COPD exacerbation and COVID 19 infection * now down to 2L of oxygen. * on breathing treatment tih bronchodilators * titrate oxygen to maintain sats > 90% * CT chest showed a large mediastinal mass without obvious occlusion. This concerning for lung cancer. * To follow-up on outpatient basis for bronchoscopy and biopsy. * On IV Solu-Medrol * * #SInus tachycardia * patient had episodic bursts of sinus tachycardia. * potassium is 3.1, so will replace. Will check magnesium also * 2D echo ordered and read is pending * * #Enterococcus UTI: Completed course of Zosyn #Hypokalemia: Potassium is 3.4. Will replace and trend. #Hyperlipidemia: On statin #Hypertension: On lisinopril and metoprolol #History of rectal cancer: Stable DVT prophylaxis: Lovenox
[2022-01-14 12:05] LABS: Magnesium 1.8 mg/dL (1.6-2.6)
--- NOTE | 2022-01-14 13:21 | CASEMGMT ---
According to the [facility] website, the following are in-network tertiary facilities: [facility], [facility], [facility], [facility], [facility], [facility], [facility], and . Jr STEARNS CM
[2022-01-14 14:04] LABS: Pathologist Review Reviewed
--- NOTE | 2022-01-14 15:40 | DS.PCM_ITS ---
Providers Date of Admission: 01/09/22 Date of Discharge: 01/15/22 Primary Care Physician: Lauren Patterson, INEZ-Jerry Consultations 01/09/22 23:44 Consult: Commanding Officer Garage / Pulmonary Medicine Routine Consulting Provider: Nile Mckeon Reason for Consult: Encephalopathy, severe hyponatremia EMERGENT Consult: No Notified: Yes Date Notified: 01/09/22 Time Notified: 23:29 Method of Notification: Text Consult: Nephrology Routine Consulting Provider: Italia Mansfield Reason for Consult: Severe hyponatremia, encephalopathy EMERGENT Consult: No Notified: Yes Date Notified: 01/09/22 Time Notified: 23:30 Method of Notification: Text Reason For Visit: ENCEPHALOPATHY, SEVERE HYPONATREMIA Diagnosis Discharge Diagnosis (1) Acute respiratory failure with hypoxia: Status: Acute Code(s): J96.01 - Acute respiratory failure with hypoxia Plan #Acute on chronic hypoxic respiratory failure due to COPD exacerbation and COVID 19 infection * now down to 2L of oxygen. * on breathing treatment tih bronchodilators * titrate oxygen to maintain sats > 90% * CT chest showed a large mediastinal mass without obvious occlusion. This concerning for lung cancer. * To follow-up on outpatient basis for bronchoscopy and biopsy. * On IV Solu-Medrol * * #SInus tachycardia * patient had episodic bursts of sinus tachycardia. * potassium is 3.1, so will replace. Will check magnesium also * 2D echo ordered and read is pending * * #Enterococcus UTI: Completed course of Zosyn #Hypokalemia: Potassium is 3.4. Will replace and trend. #Hyperlipidemia: On statin #Hypertension: On lisinopril and metoprolol #History of rectal cancer: Stable DVT prophylaxis: Lovenox Medications at Discharge Home Medications atorvastatin 20 mg tablet 20 mg PO QHS 09/13/14 benazepril 40 mg tablet 40 mg PO DAILY 09/13/14 hydrochlorothiazide 25 mg tablet 25 mg PO DAILY 09/13/14 albuterol sulfate 90 mcg/actuation aerosol inhaler 2 puff inhalation Q4H PRN PRN Shortness Of Breath 09/27/14 potassium chloride 20 mEq tablet,extended release 20 meq PO BID 09/27/14 loperamide 2 mg capsule 2 mg PO 4X/DAY PRN PRN Diarrhea 10/02/14 Hospital Course Operations None Procedures 2-D Echocardiogram Summary of Care Provided Minutes Spent on Discharge: 65 Hospital Course: Patient is a 71-year-old female with a past medical history as outlined was admitted through the ED on 01/09/2022 with a complaint of confusion and agitation. She had recently been admitted at [facility] for COVID infection and respiratory failure. She had a CTA which showed lung masses. She was discharged home on 4 L of oxygen but was noncompliant with it. She presented at [facility] with a day later with agitation and confusion. She was tachycardic on admission and labs show markedly elevated white cell count of 30. She was profoundly hyponatremic with sodium of 114. Ammonia level was 31. Liver enzymes were significant for mildly elevated total bilirubin. Chest x-ray showed nodular opacity in the right upper lobe. She was admitted to the ICU and placed on hypertonic saline. Nephrology was consulted. She was also started on IV Solu-Medrol for probable COPD exacerbation. Due to her agitation she was placed on a Precedex drip. Her confusion gradually res olved and she did well. She was transferred out of the ICU. Hospital course was complicated by recurrent tachycardia. 2D echo done showed thickened pericardium with moderate pleural effusion and concerns for early signs of cardiac tamponade. This was discussed with cardiology and patient was ria rgently transferred to tertiary facility for pericardial window versus pericardiocentesis. She was accepted at [facility]. Prior to patient being discharged her heart rate went significantly up to the 200s and she was noted to be going in and out of various rhythms such as V. tach and A. fib as well as SVT. She was given adenosine 2 doses and heart rate settled down in sinus rhythm. She was transferred to [facility] on 01/14/2022. Patient seen and examined earlier in the day prior to discharge. She had no active complaints then. She had been weaned down to 2 L of oxygen. Labs and vitals reviewed. Patient was updated about echo results and need for transfer prior to him being transferred. Physical Exam Const alert and oriented x3 Constitutional Narrative: frail General Appearance: cooperative Orientation / Consciousness: awake Exam Limitations: no limitations HEENT normocephalic, head/scalp atraumatic, hearing grossly normal bilaterally, moist oral mucous membranes and oropharynx normal Mouth: oral and palatal mucosa normal Eyes PERRL, EOMs intact bilaterally and conjunctivae normal Neck no lymphadenopathy Resp Resp Narrative: diminished breath sounds bibasally, bilateral rhonchi and crackles. On 2L of oxygen. Cardio regular rhythm, S1 normal heart sound and S2 normal heart sound Cardio Narrative: sinus tachycardia GI normal to inspection, nondistended, normoactive bowel sounds, soft to palpation, non-tender and non-distended Extremity normal to inspection, full ROM and no clubbing, cyanosis or edema Neuro oriented x3, CN's II-XII intact bilaterally, moves all extremities and no focal motor deficits Sensorium / Orientation: awake and alert Motor Exam: strength 5/5 throughout Psych affect normal Medical Records Data Medical Nutrition Assessment Dietitian: Malnutrition Criteria Met Start: 01/12/22 09:37 Freq: Status: Active Protocol: Document 01/12/22 09:37 (Rec: 01/12/22 09:37 [id number]) Nutrition Malnutrition Evidence of Malnutrition Exists Yes Malnutrition (moderate): Chronic Evidenced By Suboptimal Energy Intake ( Moderate),Physical Changes ( Moderate) Intake Problem Inadequate Oral Intake Etiology related to mental status Signs/Symptoms as evidenced by NPO status x 2 days, estimated PO intake meeting ~50% of estimated energy needs Status Active Problem Clinical Problem Chronic Disease or Condition Related Malnutrition Etiology chronic, moderate malnutrition related to inadequate energy intake Signs/Symptoms as evidenced by estimated PO intake meeting <75% of estimated energy needs >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 Weight / BMI Weight Weight: 101 lb 10.13 oz Body Mass Index (BMI) 17.2 ABG / Lab / Microbiology Data Result Diagrams: 01/14/22 04:25 01/14/22 04:25 Laboratory: Laboratory Results - last 24 hr 01/13/22 04:33: Magnesium 2.0 01/14/22 04:25: WBC 16.9 H, RBC 3.75 L, Hgb 10.7 L, Hct 33.0 L, MCV 88.0, MCH 28.5, MCHC 32.4, RDW Std Deviation 44.7 H, RDW Coeff of Cody 14.0, Plt Count 282, MPV 10.2, Neut % (Auto) Not Reportable, Absolute Neuts (auto) 16.5 H, Absolute Lymphs (auto) 0.00 L, Total Counted 100, Neutrophils % (Manual) 94 H, Band Neutrophils % 1, Monocytes % (Manual) 2, Metamyelocytes % 3 H, Diff Path Review Reviewed, Platelet Estimate ADEQUATE, RBC Morphology NORM C+C 01/14/22 04:25: Sodium 137, Potassium 3.1 L, Chloride 93 L, Carbon Dioxide 38.0 H, Anion Gap 6, BUN 6 L, Creatinine 0.45 L, Estim Creat Clear Calc 37.55, Est GFR (MDRD) Af Amer 176, Est GFR (MDRD) Non-Af 146, BUN/Creatinine Ratio 13.3, Glucose 133 H, Calcium 7.9 L 01/14/22 04:25: Magnesium 1.8 Microbiology: Microbiology 01/09/22 22:40 Urine Catheter - Catheter Urine Culture - Final Enterococcus spp Radiography Diagnostic Testing: Radiology Impression Echocardiogram 01/14/22 07:40 Interpretation Summary The study was technically difficult. Limited views were obtained. Left ventricular systolic function is hyperdynamic. The estimated ejection fraction is 75 %. The left atrium is mildly enlarged. There is moderate to severe mitral annular calcification. Extension of the mitral annular calcification onto the base of the posterior mitral valve leaflet. Mild focal mitral valve calcification of the anterior leaflet. Trivial mitral valve insufficiency. Trivial tricuspid valve insufficiency. Mild focal aortic valve calcification. Thickened pericardium. Moderate pericardial effusion. Based upon the 2D echocardiographic images obtained there is concern of RA diast olic invagination potentially compatible with early cardiac tamponade physiology. Unable to estimate RV systolic pressure due to insufficient tricuspid regurgitant envelope. Ordering Physician: Sayda Owens Referring Physician: Lauren Patterson Performed By: Franco Marie RCS Meaningful Use Info Meaningful Use Diagnoses (Choose all that apply): None applicable Discharge Plan Admission Admit Date/Time: 01/09/22 22:06 Attending Provider: Sayda Owens Primary Care Provider: Lauren Patterson NP Consulting Providers: Griselda Youssef ; Nile Mckeon ; Italia Mansfield ; Andrez Dumont Discharge Orders/Prescriptions Prescriptions: No Action atorvastatin 20 MG tablet 20 mg PO QHS hydrochlorothiazide 25 MG tablet 25 mg PO DAILY benazepril 40 MG tablet 40 mg PO DAILY albuterol sulfate 1 PUFF inhaler 2 puff inhalation Q4H PRN PRN (Reason: Shortness Of Breath) potassium chloride 20 MEQ tablet extended release 20 meq PO BID loperamide 2 MG capsule 2 mg PO 4X/DAY PRN PRN (Reason: Diarrhea) Referrals / Follow Up: Lauren Patterson NP, MANAGER [employer]UE[employer] [Primary Care Provider] - Disposition Disposition (needs filled in before D/C Order can be placed): Acute Care Hospital Charges/Coding Visit Charges Inpatient E&M: 57413 Disch Hosp
--- NOTE | 2022-01-14 18:46 | NURSING ---
report called to Vignesh STEARNS at [facility]
[2022-01-14] MEDS: Ondansetron 4 MG/2 ML Vial IV (21:42)
--- NOTE | 2022-01-14 21:57 | EKG12_ITS ---
Test Reason : TACHY Blood Pressure : / mmHG Vent. Rate : 102 BPM Atrial Rate : 102 BPM P-R Int : 126 ms QRS Dur : 110 ms QT Int : 370 ms P-R-T Axes : 072 254 041 degrees QTc Int : 482 ms Sinus tachycardia with Premature atrial complexes with Aberrant conduction Right atrial enlargement Right superior axis deviation Pulmonary disease pattern Incomplete right bundle branch block Right ventricular hypertrophy Abnormal ECG When compared with ECG of 09-JAN-2022 19:49, Significant changes have occurred Confirmed by RACIEL KIMBLE, RORY ([id number]), editorial writer CONSTANCE SHAHID ([id number]) on 01/20/2022 2:08:49 PM Referred By: LIAN Confirmed By:RORY SCHRADER MD
--- NOTE | 2022-01-14 22:20 | EKG12_ITS ---
Test Reason : TACHY Blood Pressure : / mmHG Vent. Rate : 242 BPM Atrial Rate : 000 BPM P-R Int : 000 ms QRS Dur : 130 ms QT Int : 202 ms P-R-T Axes : 000 119 039 degrees QTc Int : 405 ms Narrpw Complex Tachycardia Right bundle branch block Abnormal ECG When compared with ECG of 09-JAN-2022 19:49, Wide QRS tachycardia has replaced Sinus rhythm Vent. rate has increased BY 115 BPM Confirmed by RACIEL KIMBLE, RORY ([id number]), newspaper copy editor CONSTANCE SHAHID ([id number]) on 01/20/2022 2:10:27 PM Referred By: LIAN Confirmed By:RORY SCHRADER MD
[2022-01-14] MEDS: Morphine 2 MG/ML Syringe IV (22:26)
[2022-01-14] MEDS: Metoprolol Tartrate 5 MG/5 ML Vial IV ×2 (22:27→22:36)
--- NOTE | 2022-01-14 22:35 | EKG12_ITS ---
Test Reason : TACHY Blood Pressure : / mmHG Vent. Rate : 242 BPM Atrial Rate : 000 BPM P-R Int : 000 ms QRS Dur : 086 ms QT Int : 204 ms P-R-T Axes : 000 130 -12 degrees QTc Int : 409 ms Supraventricular tachycardia with occasional Premature ventricular complexes Right axis deviation Right ventricular hypertrophy Marked ST abnormality, possible inferior subendocardial injury Marked ST abnormality, possible anterolateral subendocardial injury Abnormal ECG Confirmed by RACIEL KIMBLE, RORY ([id number]), city editor CONSTANCE SHAHID ([id number]) on 01/20/2022 2:09:59 PM Referred By: LIAN Confirmed By:RORY SCHRADER MD
[2022-01-14] MEDS: Adenosine 6 MG/2 ML Syringe IV (22:37)
[2022-01-14] MEDS: Adenosine 6 MG/2 ML Syringe 12 MG IV (22:38)
--- NOTE | 2022-01-14 22:43 | PN_ITS ---
Progress Note Patient V. tach on the monitor and then SVT. Patient was assessed at the bedside. Patient is anxious. Tachycardia. Tachypnea. Patient given 6 mg of adenosine and then 12 mg. After her heart rate was all over the place. Wide- complex tachycardia; sinus tach; sinus tachycardia PACs; undetermined rhythm; momentary A. fib; and then sinus rhythm. Also patient received metoprolol 5 mg IV push x2. Patient rhythm rhythm eventually settled into sinus rhythm. Potassium 3.1 in a.m.. Received 40 mEq of p.o. potassium earlier. Another 40 mEq potassium ordered. Magnesium 1.8. Magnesium 2 g IV given.
--- NOTE | 2022-01-14 22:49 | NURSING ---
At 2129 pt began having high HR of 150-220 and c/o anxiousness and nausea during evening med pass. Attempted bearing down, blowing through a straw with no success of lowering her HR. Notified Dr. Roman at 2151 that pt was in Vtach with a HR of 215. Pt showed SVT on the monitor at 2154 and began c/o chest pain, EKG ordered/obtained. Dr. Roman came to bedside. Pt HR in the 240s with SVT on the monitor and EKG. Dr. Roman ordered 6mg of adenosine IVP. Pt HR dropped to low 100s and went back into SVT with HR in 240s. Adenosine 12mg IVP ordered. Pt responded the same. Metoprolol 5mg IVP x2 ordered and given. HR and BP improved. Potassium PO given and IV Mag started. Pt had multiple EKGs showing SVT, and Afib RVR all in patient's chart. Pt last EKG showed NSR.
--- NOTE | 2022-01-14 23:10 | NURSING ---
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 RN stated she is contacting the physician assigned to the pt to determine if the current placement is still appropriate and will call back with an update.
--- NOTE | 2022-01-14 23:23 | EKG12_ITS ---
Test Reason : TACHY Blood Pressure : / mmHG Vent. Rate : 093 BPM Atrial Rate : 093 BPM P-R Int : 128 ms QRS Dur : 096 ms QT Int : 368 ms P-R-T Axes : 078 000 057 degrees QTc Int : 457 ms Normal sinus rhythm Low voltage QRS Incomplete right bundle branch block Nonspecific T wave abnormality Abnormal ECG Confirmed by LARRY KIMBLE, MARYANNE ([id number]), photography editor CONSTANCE SHAHID ([id number]) on 01/16/2022 12:48:10 PM Referred By: LIAN Confirmed By:MARYANNE JUAREZ MD
--- NOTE | 2022-01-14 23:27 | EKG12_ITS ---
Test Reason : TACHY Blood Pressure : / mmHG Vent. Rate : 097 BPM Atrial Rate : 097 BPM P-R Int : 122 ms QRS Dur : 104 ms QT Int : 380 ms P-R-T Axes : 070 090 044 degrees QTc Int : 482 ms Sinus rhythm with Fusion complexes Right atrial enlargement Incomplete right bundle branch block Possible Right ventricular hypertrophy Abnormal ECG When compared with ECG of 09-JAN-2022 19:49, Premature ventricular complexes are no longer Present ST no longer depressed in Lateral leads Confirmed by RACIEL KIMBLE, RORY ([id number]), assistant editor CONSTANCE SHAHID ([id number]) on 01/20/2022 2:08:35 PM Referred By: LIAN Confirmed By:RORY SCHRADER MD
--- NOTE | 2022-01-14 23:29 | EKG12_ITS ---
Test Reason : TACHY Blood Pressure : / mmHG Vent. Rate : 149 BPM Atrial Rate : 149 BPM P-R Int : 116 ms QRS Dur : 092 ms QT Int : 276 ms P-R-T Axes : 079 -15 022 degrees QTc Int : 434 ms Sinus tachycardia with frequent and consecutive Premature ventricular complexes Right atrial enlargement Incomplete right bundle branch block Nonspecific ST abnormality Abnormal ECG When compared with ECG of 09-JAN-2022 19:49, Significant changes have occurred Confirmed by RACIEL KIMBLE, RORY ([id number]), video editor CONSTANCE SHAHID ([id number]) on 01/20/2022 2:09:43 PM Referred By: LIAN Confirmed By:RORY SCHRADER MD
--- NOTE | 2022-01-14 23:30 | EKG12_ITS ---
Test Reason : TACHY Blood Pressure : / mmHG Vent. Rate : 149 BPM Atrial Rate : 000 BPM P-R Int : 000 ms QRS Dur : 096 ms QT Int : 200 ms P-R-T Axes : 000 129 027 degrees QTc Int : 315 ms Atrial fibrillation with rapid ventricular response Right axis deviation Incomplete right bundle branch block Possible Right ventricular hypertrophy Confirmed by RACIEL KIMBLE, RORY ([id number]), assistant film editor CONSTANCE SHAHID ([id number]) on 01/20/2022 2:09:18 PM Referred By: LIAN Confirmed By:RORY SCHRADER MD
--- NOTE | 2022-01-14 23:47 | CPS ---
pt refuses BIPAP
--- NOTE | 2022-01-15 00:14 | NURSING ---
Report given to Physicians medic for transport to [facility].
== END 2022-01-15 00:01 | disposition short-term general hospital (02) | DRG 643 ==
LOC: ED 22:08 → ICU 23:12 → PCU 01-13 06:05 → ICU 01-13 10:10
PROVIDERS: Internal Medicine Critical Care Medicine; Internal Medicine Nephrology; Admitting Provider Family Medicine; Emergency Provider Student in an Organized Health Care Education/Training Program; PCP Nurse Practitioner Family; Visit Provider Student in an Organized Health Care Education/Training Program
DX: E22.2 Syndrome of inappropriate secretion of antidiuretic hormone (principal); J96.21 Acute and chronic respiratory failure with hypoxia; G93.41 Metabolic encephalopathy; U07.1 COVID-19; J96.22 Acute and chronic respiratory failure with hypercapnia; J98.59 Other diseases of mediastinum, not elsewhere classified; E44.0 Moderate protein-calorie malnutrition; I47.1 Supraventricular tachycardia; J44.1 Chronic obstructive pulmonary disease with (acute) exacerbation; J90 Pleural effusion, not elsewhere classified; N39.0 Urinary tract infection, site not specified; Z68.1 Body mass index [BMI] 19.9 or less, adult; E27.8 Other specified disorders of adrenal gland; I48.91 Unspecified atrial fibrillation; E87.8 Other disorders of electrolyte and fluid balance, not elsewhere classified; E87.6 Hypokalemia; I10 Essential (primary) hypertension; E78.5 Hyperlipidemia, unspecified; Z85.048 Personal history of other malignant neoplasm of rectum, rectosigmoid junction, and anus; B95.2 Enterococcus as the cause of diseases classified elsewhere; Z79.899 Other long term (current) drug therapy; Z87.891 Personal history of nicotine dependence; Z60.9 Problem related to social environment, unspecified; Z86.718 Personal history of other venous thrombosis and embolism
CPT/HCPCS: 36415; 36569; 36600; 70470; 71045; 80048; 80076; 81001; 82140; 82436; 82570; 82803; 83735; 83935; 84100; 84145; 84300; 84443; 84484; 85025; 87077; 87086; 87088; 87186; 93005; 93306; 94002; 94003; 94640; 97163; 97166; 97530; 97535; 99251; 99285; J7030; J7040; Q9957; Q9967; A4216; G0463; J0153; J2405